=== PATIENT | male | born 1935 | race Caucasian/White ===

== ENCOUNTER 2018-12-18 17:46 | Inpatient (IN) ==
[2018-12-18 18:13] LABS: Basophils % 0.6 %; Eosinophils # 0.1 K/mcL (0.0-0.6); Hematocrit 47.4 % (37.5-50.1); Hemoglobin 15.6 g/dL (12.9-16.9); Immature Granulocytes % 0.3 % (0-4); Lymphocytes # 1.2 K/mcL (0.6-4.6); Lymphocytes % 17.5 %; Mean Corpuscular HGB Conc 32.9 g/dL (31.6-35.5); Mean Corpuscular Hemoglobin 33.1 pg (28.0-33.3); Mean Corpuscular Volume 100.4 fL (83.0-100.0); Mean Platelet Volume 11.3 fL (9.4-12.4); Monocytes # 0.8 K/mcL (0.0-1.3); Monocytes % 11.5 %; Neutrophils # 4.7 K/mcL (1.6-8.9); Platelet Count 116 K/mcL (140-400); Red Blood Count 4.72 M/mcL (4.19-5.50); Red Cell Distribution Width 13.7 % (11.5-14.5); Segmented Neutrophils % 69.1 %; White Blood Count 6.9 K/mcL (4.3-11.1)
[2018-12-18 18:26] LABS: INR 2.7; Prothrombin Time 30.9 Seconds (9.4-12.1)
[2018-12-18 18:35] LABS: BUN/Creatinine Ratio 18 (6-26); Blood Urea Nitrogen 18 mg/dL (8-23); Calcium 8.6 mg/dL (8.6-10.3); Carbon Dioxide 23 mEq/L (23-29); Chloride 108 mEq/L (98-107); Glucose 98 mg/dL (70-105); Osmolality,Calculated 290 (280-300); Potassium 4.2 mEq/L (3.5-5.1); Sodium 139 mEq/L (136-145); eGFR For African Americans > 60 (> 60); eGFR For Non-African Americans > 60 (> 60)
[2018-12-18 18:36] LABS: Troponin I 0.03 ng/mL (< 0.04)
[2018-12-18] MEDS ORDERED: Furosemide 40 MG/4 ML VIAL IVP ONE (18:42)
--- NOTE | 2018-12-18 19:12 | Emergency Department Note ---
Disposition Clinical Impression: Bradycardia, Dyspnea on exertion CHF (congestive heart failure) Qualifiers: Heart failure type: unspecified Heart failure chronicity: acute Qualified Code(s): I50.9 - Heart failure, unspecified Disposition: Admitted As Inpatient Condition: Good Referrals: Eren Najera MD [Primary Care Provider] - Forms: ED Satisfaction Letter Time of Disposition: 19:33 General Adult HPI - General Chief complaint: ED Shortness of Breath/Dyspnea Stated complaint: dyspnea, bradycardia Time Seen by Provider: 12/18/18 17:50 Source: patient, family Mode of arrival: ambulatory Limitations: no limitations Nursing Notes Reviewed: Yes Vital Signs Reviewed: Yes - History of Present Illness HPI Narrative: 83-year-old female with significant past medical history of atrial fibrillation currently on Coumadin presenting to the emergency department chief complaint of aggressive shortness of breath. Patient states over the past few days he has had worsening shortness of breath on exertion. He has had episodes like this in the past they have spontaneously resolved. This is the worst episode he is ever had. Denies any chest pain, dizziness or syncope. He went to a primary care physician today and was given a prescription for Lasix. At that time he was noticed to be bradycardic and was transferred to the emergency department for further evaluation. Patient states he has been told multiple times that he has a low heart rate and falls with cardiology but has never needed any intervention. Pain Scale: 1 - Related Data Home Medications Medication Instructions Recorded Confirmed Allopurinol [Zyloprim 100 MG] 100 mg PO DAILY 01/13/18 01/13/18 Amlodipine Besylate 2.5 mg PO DAILY 01/13/18 01/13/18 Benazepril HCl 20 mg PO DAILY 01/13/18 01/13/18 Doxazosin [Cardura] 4 mg PO DAILY 01/13/18 01/13/18 HYDROcodone/Acet 5/325 mg [[place] 1 tab PO Q8H PRN 01/13/18 01/13/18 5-325 mg] Multivitamin [One Daily 1 tab PO DAILY 01/13/18 01/13/18 Multivitamin] [place]-3/Dha/Epa/Fish Oil [Fish Oil 1 cap PO DAILY 01/13/18 01/13/18 1,000 mg Softgel] Omeprazole [PriLOSEC] 40 mg PO DAILY 01/13/18 01/13/18 Potassium 99 mg PO DAILY 01/13/18 01/13/18 Simvastatin [Zocor] 40 mg PO HS 01/13/18 01/13/18 Vitamin E Acid Succinate [Vitamin 400 units PO DAILY 01/13/18 01/13/18 E] Warfarin Sodium 5 mg PO QPM 01/13/18 01/13/18 Zinc [Zinc Chelated] 50 mg PO DAILY 01/13/18 01/13/18 Previous Rx's Medication Instructions Recorded Benzonatate [Tessalon] 200 mg PO TID PRN #30 capsule 03/29/18 Doxycycline 100 mg PO BID #14 capsule 03/29/18 GuaiFENesin ER [Mucinex] 1,200 mg PO BID #20 tbbp.12hr 03/29/18 Allergies Allergy/AdvReac Type Severity Reaction Status Date / Time Penicillins Allergy Swelling Verified 03/29/18 10:44 of Lip/Tongue/Throat All systems ED: reviewed and negative except as stated. Constitutional: Denies: fever Eyes: Reports: as per HPI ENT ED: Reports: as per HPI Cardiovascular: Reports: dyspnea on exertion. Denies: chest pain Respiratory: Reports: dyspnea Gastrointestinal: Reports: as per HPI Genitourinary: Reports: as per HPI Musculoskeletal: Reports: as per HPI Integumentary: Reports: as per HPI Neurological: Reports: as per HPI Psychiatric: Reports: as per HPI Endocrine: Reports: as per HPI Hematological/Lymphatic: Reports: as per HPI Allergic/Immunologic: Reports: as per HPI Past Medical History - Past Medical History Attestation: Yes The following information was validated with the patient. Medical history: Reports: hypertension Surgical history: Reports: hip replacement, knee replacement Psychiatric history: Reports: no psych history - Social History Smoking Status: Never smoker Smokeless Tobacco Status: No Alcohol use: Reports: none Drug use: Reports: none Physical Exam - General Limitations: no limitations General appearance: alert, in no apparent distress - Head Head exam: atraumatic, normocephalic, normal inspection - Eye Eye exam: Absent: scleral icterus - ENT ENT exam: mucous membranes moist - Neck Neck exam: Present: full ROM - Chest Chest inspection: Present: symmetric chest wall rise - Respiratory Respiratory exam: Present: other (Coarse breath sounds bilateral bases) - Cardiovascular Cardiovascular exam: Present: normal rhythm, bradycardia, normal heart sounds - Abdominal Exam Abdominal exam: Present: soft, Non-Tender. Absent: distention, guarding, rebound - Extremities Exam Extremities exam: Present: full ROM - Neurological Exam Neurological exam: Present: alert, oriented X3 - Psychiatric Psychiatric exam: Present: normal affect - Skin Skin exam: Present: warm Course Course Narrative: 83-year-old male presenting to the emergency department chief complaint of dyspnea on exertion. In the room he is alert and oriented 3. Bradycardic in the upper 30s and low 40s but hemodynamically stable. Physical exam is significant for decreased breath sounds in the bilateral bases. He does have trace edema in the bilateral lower extremities. Concern for CHF exacerbation at this time. Also concern for possible symptomatic bradycardia. We will obtain basic laboratory analysis and chest x-ray. Disposition will be admission but pending results. Patient agrees with this plan. - Reevaluation(s) Reevaluation #1: Patient's laboratory analysis benign. Chest x-ray shows pleural effusion. At this time we will plan to admit the patient for bradycardia and fluid overload with concern for new onset CHF. Patient remains alert and oriented 3 and hemodynamically stable. Patient agrees with this plan. I spoke with the hospitalist director of alumni relations Dr. Diamond who agrees to accept the patient at this time. Vital Signs Temperature 97.7 F 12/18/18 17:47 Pulse Rate 46 12/18/18 17:47 Respiratory Rate 20 12/18/18 17:47 Blood Pressure 156/77 12/18/18 17:47 O2 Sat by Pulse Oximetry 93 12/18/18 17:47 Temperature 97.7 F 12/18/18 17:53 Pulse Rate 46 12/18/18 17:53 Respiratory Rate 20 12/18/18 17:53 Blood Pressure 156/77 12/18/18 17:53 O2 Sat by Pulse Oximetry 98 12/18/18 18:08 Oxygen Delivery Oxygen Delivery Room Air Medical Decision Making - Lab Data Result diagrams: 12/18/18 17:56 12/18/18 17:56 Lab Results 12/18/18 12/18/18 12/18/18 Range/Units 17:56 17:56 17:56 WBC 6.9 (4.3-11.1) K/mcL RBC 4.72 (4.19-5.50) M/mcL Hgb 15.6 (12.9-16.9) g/dL Hct 47.4 (37.5-50.1) % MCV 100.4 H (83.0-100.0) fL MCH 33.1 (28.0-33.3) pg MCHC 32.9 (31.6-35.5) g/dL RDW 13.7 (11.5-14.5) % Plt Count 116 L (140-400) K/mcL MPV 11.3 (9.4-12.4) fL Immature Gran % 0.3 (0-4) % Seg Neutrophils % 69.1 % Lymphocytes % 17.5 % Monocytes % 11.5 % Eosinophils % 1.0 % Basophils % 0.6 % Neutrophils # 4.7 (1.6-8.9) K/mcL Lymphocytes # 1.2 (0.6-4.6) K/mcL Monocytes # 0.8 (0.0-1.3) K/mcL Eosinophils # 0.1 (0.0-0.6) K/mcL Basophils # 0.0 (0.0-0.2) K/mcL PT (9.4-12.1) Seconds INR Sodium 139 (136-145) mEq/L Potassium 4.2 (3.5-5.1) mEq/L Chloride 108 H (98-107) mEq/L Carbon Dioxide 23 (23-29) mEq/L BUN 18 (8-23) mg/dL Creatinine 1.01 (0.70-1.30) mg/dL Est GFR ( Amer) > 60 (> 60) Est GFR (Non-Af Amer) > 60 (> 60) BUN/Creatinine Ratio 18 (6-26) Glucose 98 (70-105) mg/dL Calculated Osmolality 290 (280-300) Calcium 8.6 (8.6-10.3) mg/dL Troponin I 0.03 (< 0.04) ng/mL B-Natriuretic Peptide 608 H (Less than 100) pg/mL 12/18/18 Range/Units 17:56 WBC (4.3-11.1) K/mcL RBC (4.19-5.50) M/mcL Hgb (12.9-16.9) g/dL Hct (37.5-50.1) % MCV (83.0-100.0) fL MCH (28.0-33.3) pg MCHC (31.6-35.5) g/dL RDW (11.5-14.5) % Plt Count (140-400) K/mcL MPV (9.4-12.4) fL Immature Gran % (0-4) % Seg Neutrophils % % Lymphocytes % % Monocytes % % Eosinophils % % Basophils % % Neutrophils # (1.6-8.9) K/mcL Lymphocytes # (0.6-4.6) K/mcL Monocytes # (0.0-1.3) K/mcL Eosinophils # (0.0-0.6) K/mcL Basophils # (0.0-0.2) K/mcL PT 30.9 H (9.4-12.1) Seconds INR 2.7 Sodium (136-145) mEq/L Potassium (3.5-5.1) mEq/L Chloride (98-107) mEq/L Carbon Dioxide (23-29) mEq/L BUN (8-23) mg/dL Creatinine (0.70-1.30) mg/dL Est GFR ( Amer) (> 60) Est GFR (Non-Af Amer) (> 60) BUN/Creatinine Ratio (6-26) Glucose (70-105) mg/dL Calculated Osmolality (280-300) Calcium (8.6-10.3) mg/dL Troponin I (< 0.04) ng/mL B-Natriuretic Peptide (Less than 100) pg/mL - EKG Data EKG #1 EKG attestation: Yes I reviewed and interpreted this EKG. EKG results narrative: atrial fibrillation. Right bundle branch block. 57 bpm. QRS 163, QTC 479. No sign of acute ST segment elevation or ischemia.
--- NOTE | 2018-12-18 19:26 | Emergency Department Note ---
Disposition Clinical Impression: Bradycardia, Dyspnea on exertion CHF (congestive heart failure) Qualifiers: Heart failure type: unspecified Heart failure chronicity: acute Qualified Code(s): I50.9 - Heart failure, unspecified Disposition: Admitted As Inpatient Condition: Fair Time of Disposition: 19:20 General Adult HPI - General Chief complaint: ED Shortness of Breath/Dyspnea Stated complaint: dyspnea, bradycardia Time Seen by Provider: 12/18/18 17:50 Source: patient, family Mode of arrival: ambulatory Limitations: no limitations Nursing Notes Reviewed: Yes Vital Signs Reviewed: Yes - History of Present Illness Pain Scale: 1 - Related Data Home Medications Medication Instructions Recorded Confirmed Allopurinol [Zyloprim 100 MG] 100 mg PO DAILY 01/13/18 01/13/18 Amlodipine Besylate 2.5 mg PO DAILY 01/13/18 01/13/18 Benazepril HCl 20 mg PO DAILY 01/13/18 01/13/18 Doxazosin [Cardura] 4 mg PO DAILY 01/13/18 01/13/18 HYDROcodone/Acet 5/325 mg [[place] 1 tab PO Q8H PRN 01/13/18 01/13/18 5-325 mg] Multivitamin [One Daily 1 tab PO DAILY 01/13/18 01/13/18 Multivitamin] [place]-3/Dha/Epa/Fish Oil [Fish Oil 1 cap PO DAILY 01/13/18 01/13/18 1,000 mg Softgel] Omeprazole [PriLOSEC] 40 mg PO DAILY 01/13/18 01/13/18 Potassium 99 mg PO DAILY 01/13/18 01/13/18 Simvastatin [Zocor] 40 mg PO HS 01/13/18 01/13/18 Vitamin E Acid Succinate [Vitamin 400 units PO DAILY 01/13/18 01/13/18 E] Warfarin Sodium 5 mg PO QPM 01/13/18 01/13/18 Zinc [Zinc Chelated] 50 mg PO DAILY 01/13/18 01/13/18 Previous Rx's Medication Instructions Recorded Benzonatate [Tessalon] 200 mg PO TID PRN #30 capsule 03/29/18 Doxycycline 100 mg PO BID #14 capsule 03/29/18 GuaiFENesin ER [Mucinex] 1,200 mg PO BID #20 tbbp.12hr 03/29/18 Allergies Allergy/AdvReac Type Severity Reaction Status Date / Time Penicillins Allergy Swelling Verified 03/29/18 10:44 of Lip/Tongue/Throat Constitutional: Denies: fever Eyes: Reports: as per HPI ENT ED: Reports: as per HPI Cardiovascular: Reports: dyspnea on exertion. Denies: chest pain Respiratory: Reports: dyspnea Gastrointestinal: Reports: as per HPI Genitourinary: Reports: as per HPI Musculoskeletal: Reports: as per HPI Integumentary: Reports: as per HPI Neurological: Reports: as per HPI Psychiatric: Reports: as per HPI Endocrine: Reports: as per HPI Hematological/Lymphatic: Reports: as per HPI Allergic/Immunologic: Reports: as per HPI Past Medical History - Past Medical History Medical history: Reports: hypertension Surgical history: Reports: hip replacement, knee replacement Psychiatric history: Reports: no psych history - Social History Smoking Status: Never smoker Smokeless Tobacco Status: No Alcohol use: Reports: none Drug use: Reports: none Physical Exam - General Limitations: no limitations General appearance: alert, in no apparent distress Course Vital Signs Temperature 97.7 F 12/18/18 17:47 Pulse Rate 46 12/18/18 17:47 Respiratory Rate 20 12/18/18 17:47 Blood Pressure 156/77 12/18/18 17:47 O2 Sat by Pulse Oximetry 93 12/18/18 17:47 Temperature 97.7 F 12/18/18 17:53 Pulse Rate 46 12/18/18 17:53 Respiratory Rate 20 12/18/18 17:53 Blood Pressure 156/77 12/18/18 17:53 O2 Sat by Pulse Oximetry 98 12/18/18 18:08 Oxygen Delivery Oxygen Delivery Room Air Medical Decision Making - Lab Data Result diagrams: 12/18/18 17:56 12/18/18 17:56 Lab Results 12/18/18 12/18/18 12/18/18 Range/Units 17:56 17:56 17:56 WBC 6.9 (4.3-11.1) K/mcL RBC 4.72 (4.19-5.50) M/mcL Hgb 15.6 (12.9-16.9) g/dL Hct 47.4 (37.5-50.1) % MCV 100.4 H (83.0-100.0) fL MCH 33.1 (28.0-33.3) pg MCHC 32.9 (31.6-35.5) g/dL RDW 13.7 (11.5-14.5) % Plt Count 116 L (140-400) K/mcL MPV 11.3 (9.4-12.4) fL Immature Gran % 0.3 (0-4) % Seg Neutrophils % 69.1 % Lymphocytes % 17.5 % Monocytes % 11.5 % Eosinophils % 1.0 % Basophils % 0.6 % Neutrophils # 4.7 (1.6-8.9) K/mcL Lymphocytes # 1.2 (0.6-4.6) K/mcL Monocytes # 0.8 (0.0-1.3) K/mcL Eosinophils # 0.1 (0.0-0.6) K/mcL Basophils # 0.0 (0.0-0.2) K/mcL PT (9.4-12.1) Seconds INR Sodium 139 (136-145) mEq/L Potassium 4.2 (3.5-5.1) mEq/L Chloride 108 H (98-107) mEq/L Carbon Dioxide 23 (23-29) mEq/L BUN 18 (8-23) mg/dL Creatinine 1.01 (0.70-1.30) mg/dL Est GFR ( Amer) > 60 (> 60) Est GFR (Non-Af Amer) > 60 (> 60) BUN/Creatinine Ratio 18 (6-26) Glucose 98 (70-105) mg/dL Calculated Osmolality 290 (280-300) Calcium 8.6 (8.6-10.3) mg/dL Troponin I 0.03 (< 0.04) ng/mL B-Natriuretic Peptide 608 H (Less than 100) pg/mL 12/18/18 Range/Units 17:56 WBC (4.3-11.1) K/mcL RBC (4.19-5.50) M/mcL Hgb (12.9-16.9) g/dL Hct (37.5-50.1) % MCV (83.0-100.0) fL MCH (28.0-33.3) pg MCHC (31.6-35.5) g/dL RDW (11.5-14.5) % Plt Count (140-400) K/mcL MPV (9.4-12.4) fL Immature Gran % (0-4) % Seg Neutrophils % % Lymphocytes % % Monocytes % % Eosinophils % % Basophils % % Neutrophils # (1.6-8.9) K/mcL Lymphocytes # (0.6-4.6) K/mcL Monocytes # (0.0-1.3) K/mcL Eosinophils # (0.0-0.6) K/mcL Basophils # (0.0-0.2) K/mcL PT 30.9 H (9.4-12.1) Seconds INR 2.7 Sodium (136-145) mEq/L Potassium (3.5-5.1) mEq/L Chloride (98-107) mEq/L Carbon Dioxide (23-29) mEq/L BUN (8-23) mg/dL Creatinine (0.70-1.30) mg/dL Est GFR ( Amer) (> 60) Est GFR (Non-Af Amer) (> 60) BUN/Creatinine Ratio (6-26) Glucose (70-105) mg/dL Calculated Osmolality (280-300) Calcium (8.6-10.3) mg/dL Troponin I (< 0.04) ng/mL B-Natriuretic Peptide (Less than 100) pg/mL Critical Care Time Critical Care Time: Yes Total Critical Care Time: 45 Attestation: Critical care performed: Time is exclusive of separately billable procedures. Time includes: direct patient care, patient reassessment, coordination of patient care, interpretation of data (laboratory data, radiology data, and respiratory data), review of patient's medical records, medical consultation and documentation of patient care. Procedures included in critical care time: Procedures excluded from critical care time: Attestation Statement - Attestation Attestation: I examined this patient and my medical decision-making was reviewed with the Brock adame Physician. I agree with the documented findings, disposition and treatment plan as described except to the extent set forth below. Patient to the ED with a chief complaint of dyspnea on exertion. Patient has been doing physical therapy. They sent him to his PCP. They sent him here. Denies any dizziness or syncope. No chest pain. He was recently started on Lasix. On exam he is in no acute distress. His heart rates fluctuating between 30 and 50. He is asymptomatic with this. Abdomen is soft. Lungs diminished. He does have 2+ pedal edema bilaterally. Plan. Cardiac workup. Nurses placed him on pacer pads, but the patient is asymptomatic. Patient is not hypo tensive. Getting IV Lasix. Chest x-ray shows a possible basilar opacity. Patient is not coughing. He is afebrile. No white count. I do not believe he has pneumonia. He is given IV Lasix for diuresis. Calling for admission. Admitted to medicine.
--- NOTE | 2018-12-18 19:40 | Internal Med History&Physical ---
<Kim Mishra - Last Filed: 12/18/18 21:36> Date of Encounter: 12/18/18 Time of Encounter: 19:40 Internal Medicine - H&P: HPI Chief complaint: Dyspnea Admitted From: Emergency Dept Plans for Post Hospital Care: Home History of present illness: Mr. Fox is a 83 year old male with past medical history of atrial fibrillation on anticoagulation, hypertension, hyperlipidemia, Gerd, CHRISTIANO who presented to [facility] complaining of shortness of breath. Patient reported that he was at his chiropractor's office and it was noted that he was bradycardiac and short of breath so he was recommended to go to ED. The patient reported that for about a month now he has had dyspnea on exertion that has been slowly worsening with today having the worst dyspnea. It is improved with rest. He states he has been bradycardiac with heart rate in the 40s for a very long time but he is asymptomatic and has never had a syncopal episode, chest pain, palpitations, weakness. He has only been lightheaded once with it in the past. He has noted some nausea recently. He does not take any heart rate limiting medications. He has occasional left lower extremity edema from an Achilles tendon surgery. He denied orthopnea, chest pain, palpitations, syncope, PND, lower extremity edema, wheezing, cough, sputum production, abdominal pain, diaphoresis, difficulty urinating. 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 Denies drug and tobacco use. Family history of father having [place]. After thorough discussion of code status the patient reported he would not want intubated or chest compressions. He requested DNR CCA DNI. Initial vitals in ED were 97.7F, HR 30-40s, RR 20, BP 156/77, SpO2 93% on room air. Platelets 116, INR 2.7, BNP 608, troponin 0.03. BMP unremarkable. -Chest x-ray showing small right effusion with right basilar airspace disease either atelectasis or pneumonia. -EKG showing atrial fibrillation, HR 57, no ST or T wave changes indicating ischemia. -In the ED the patient was given Lasix 40 mg IV. Past Med Surg Social Fam HX - Past Medical History Attestation: Yes The following information was validated with the patient. Source: patient Medical history: atrial fibrillation, GERD, hypertension Additional medical history: bradycardia Psychiatric history: no psych history - Past Surgical History Surgical History: hip replacement, knee replacement Additional surgical history: achillies tendon repair, - Social History Smoking Status: Never smoker Smokeless Tobacco Status: No Alcohol use: recent (2 cocktails a day with 1.5 shots each) Drug use: none - Family History Father Hx Family Cardiac Disorders: Yes ([place]) Mother Hx Family Cancer: Yes (breast) Internal Medicine - H&P: Meds Benazepril HCl 20 mg PO DAILY 01/13/18 [History] Doxazosin [Cardura] 4 mg PO DAILY 01/13/18 [History] HYDROcodone/Acet 5/325 mg [[place] 5-325 mg] 1 tab PO Q8H PRN 01/13/18 [History] Multivitamin [One Daily Multivitamin] 1 tab PO DAILY 01/13/18 [History] [place]-3/Dha/Epa/Fish Oil [Fish Oil 1,000 mg Softgel] 1 cap PO DAILY 01/13/18 [History] Potassium 99 mg PO DAILY 01/13/18 [History] Simvastatin [Zocor] 40 mg PO HS 01/13/18 [History] Vitamin E Acid Succinate [Vitamin E] 400 units PO DAILY 01/13/18 [History] Warfarin Sodium 5 mg PO QPM 01/13/18 [History] Zinc [Zinc Chelated] 50 mg PO DAILY 01/13/18 [History] Allopurinol [Zyloprim 300 MG] 300 mg PO DAILY 12/18/18 [History] Colchicine [Colcrys] 0.6 mg PO DAILY 12/18/18 [History] Furosemide [Lasix] 20 mg PO DAILY 12/18/18 [History] Omeprazole 20 mg PO DAILY 12/18/18 [History] Allergy/AdvReac Type Severity Reaction Status Date / Time Penicillins Allergy Swelling Verified 03/29/18 10:44 of Lip/Tongue/Throat All Systems PM: A 10-system review of systems was performed and is negative for pertinent findings except as documented above in the HPI. - Constitutional Constitutional: no chills, no fatigue, no fever(s), no falls, no malaise, no weakness - EENT Eyes: no blurry vision, no change in vision - Cardiovascular Cardiovascular ROS IM: edema, no chest pain, no diaphoresis, no dyspnea on exertion, no lightheadedness, no orthopnea, no palpitations, no paroxysmal nocturnal dyspnea, no syncope - Respiratory Respiratory: dyspnea on exertion, no cough, no wheezing, no excessive phlegm production - Gastrointestinal Gastrointestinal: no abdominal pain, no diarrhea, no nausea, no vomiting - Genitourinary Genitourinary ROS male: no difficulty urinating, no dysuria - Musculoskeletal Musculoskeletal ROS IM: no muscle cramps, no muscle weakness - Integumentary Integumentary IM: no rash, no skin ulcer - Neurological Neurological ROS: no dizziness, no frequent falls, no headache(s) - Psychiatric Psychiatric: no confusion - Endocrine Endocrine IM: no fatigue - Constitutional Vitals: Temp Pulse Resp BP Pulse Ox 97.7 F 46 20 156/77 98 12/18/18 17:53 12/18/18 17:53 12/18/18 17:53 12/18/18 17:53 12/18/18 18:08 Exam: Gen.: Vitals noted. No acute distress. AAOx3, morbidly obese HEENT: oropharynx clear, Normocephalic, atraumatic Cardiac: irregular, 3/6 systolic murmur, +S1/S2 Pulmonary: bilaterally rales, no wheezes, or rhonchi, equal chest expansion Abdomen: soft, nontender, Bowel sounds noted, no guarding MSK: ROM intact, no joint swelling noted Extremities: +1 BLE pitting edema, nontender calf, no cyanosis or clubbing Neuro: A&Ox3, moves all extremities, no focal deficits Psych: Appropriate mood and behavior Internal Med - H&P Results - Labs CBC & Chem 7: 12/18/18 17:56 12/18/18 17:56 Labs: Short CBC 12/18/18 Range/Units 17:56 WBC 6.9 (4.3-11.1) K/mcL Hgb 15.6 (12.9-16.9) g/dL Hct 47.4 (37.5-50.1) % Plt Count 116 L (140-400) K/mcL Neutrophils # 4.7 (1.6-8.9) K/mcL BMP 12/18/18 17:56 Sodium 139 Potassium 4.2 Chloride 108 H Carbon Dioxide 23 BUN 18 Creatinine 1.01 Glucose 98 Calcium 8.6 Cardiac Enzymes 12/18/18 Range/Units 17:56 Troponin I 0.03 (< 0.04) ng/mL - Impressions ITS Impressions Chest X-Ray 12/18/18 18:57 IMPRESSION: Small right effusion with right basilar airspace disease, atelectasis or pneumonia. D/ / Thalia Yee Cha, MD / Thalia Yee Cha, MD Interpreting Provider: Thalia Yee Cha, MD - Assessment and Plan (1) CHF (congestive heart failure) Current Visit: Yes Status: Acute Assessment and plan: Presumptive new CHF. Patient has reported dyspnea on exertion has been progressively worsening over the past month and was at its worse today. In the ED the patient was given Lasix 40 mg IV. -In ED HR 30-40s. Heart rate now 52 -BNP 608 -troponin 0.03 -Chest x-ray showing small right effusion with right basilar airspace disease either atelectasis or pneumonia. -EKG showing atrial fibrillation, HR 57, no ST or T wave changes indicating ischemia. -Patient denies chest pain, palpitations, diaphoresis. -On examination patient has bibasilar rales and bilateral 1+ pitting edema plan -echocardiogram ordered -continue Lasix 20 mg IV daily -cardiology consulted due to bradycardia with presumes new CHF as he is now hav ing dyspnea on exertion -trend troponin -continue home lisinopril, simvastatin. -No beta shea due to bradycardia -1500cc fluid restrictive diet -strict I&O, daily weight Qualifiers: Heart failure type: unspecified Heart failure chronicity: acute Qualified Code(s): I50.9 - Heart failure, unspecified (2) Bradycardia Current Visit: Yes Status: Acute Assessment and plan: Patient was known chronic bradycardia for which he has previously been asymptomatic but is now having dyspnea on exertion.. In ED HR 30-40s. He follows with the grant officer Dr. Montelongo. He denies chest pain, syncope, weakness, fatigue. He has new dyspnea on exertion for the past month. He is not any heart rate limiting medications. -EKG showing atrial fibrillation, HR 57, no ST or T wave changes indicating ischemia. plan -cardiology consulted to evaluate the bradycardia. Possible pacemaker? -Continue cardiac telemetry (3) Dyspnea on exertion Current Visit: Yes Status: Acute Assessment and plan: Dyspnea on exertion is likely multifactorial secondary to CHF, but also having bradycardia 30-40s. Patient has no previous diagnosis CHF. Improved with rest. Do not suspect COPD as he does not smoke. Do not suspect pneumonia. His atrial fibrillation is rate controlled currently. No PND that he sleeps with BiPAP. No cough, wheezing, fever, chills, chest pain, orthopnea. Patient received 40 mg IV Lasix in ED. -BNP 608 -Chest x-ray showing small right effusion with right basilar airspace disease either atelectasis or pneumonia. -EKG showing atrial fibrillation, HR 57, no ST or T wave changes indicating ischemia. -All my examination he has bilateral bibasilar rales. Bilateral 1+ pitting edema. plan -echocardiogram pending -continue BiPAP at night for CHRISTIANO (4) Thrombocytopenia Current Visit: Yes Status: Acute Assessment and plan: Thrombocytopenia with platelets of 116. Baseline 190s. -Suspect possible etiology may be liver cirrhosis or LEE as patient has history of daily alcohol use for over 20 years. -PT 30.9 -INR 2.7 in the setting of taking warfarin -no obvious active bleeding -will order hepatic panel to evaluate. -Consider liver ultrasound out patient (5) Afib Current Visit: No Status: Chronic Assessment and plan: History of atrial fibrillation on anticoagulation with warfarin. Patient is not rate controlled as he is chronically bradycardiac. Continue warfarin. Qualifiers: Atrial fibrillation type: unspecified Qualified Code(s): I48.91 - Unspecified atrial fibrillation (6) Hypertension Current Visit: Yes Status: Acute Assessment and plan: History of hypertension taking benazepril. BP controlled. 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 He denies ever having withdrawal symptoms or seizures. -Will order CIWA protocol as a precautionary with Ativan PRN. (8) CHRISTIANO (obstructive sleep apnea) Current Visit: Yes Status: Acute Assessment and plan: Patient has CHRISTIANO for which uses BiPAP at that time. Continue BiPAP (9) Morbid obesity with BMI of 40.0-44.9, adult Current Visit: Yes Status: Acute Assessment and plan: Lifestyle changes (10) DVT prophylaxis Current Visit: Yes Status: Acute Assessment and plan: Continue home warfarin - Time Spent With Patient Total time spent is greater than 50% in coordination of care (as documented) at patient's floor/unit and/or counseling patient: <Adarsh Diamond - Last Filed: 12/19/18 04:35> Date of Encounter: 12/18/18 Internal Medicine - H&P: HPI History of present illness: Mr. Fox is a 83 year old male All Systems PM: A 10-system review of systems was performed and is negative for pertinent findings except as documented above in the HPI. - Constitutional Vitals: Temp Pulse Resp BP Pulse Ox 98.1 F 77 16 187/84 99 12/19/18 04:15 12/19/18 04:15 12/19/18 04:15 12/19/18 04:15 12/19/18 04:15 Internal Med - H&P Results - Labs CBC & Chem 7: 12/18/18 17:56 12/19/18 01:14 Labs: Short CBC 12/18/18 Range/Units 17:56 WBC 6.9 (4.3-11.1) K/mcL Hgb 15.6 (12.9-16.9) g/dL Hct 47.4 (37.5-50.1) % Plt Count 116 L (140-400) K/mcL Neutrophils # 4.7 (1.6-8.9) K/mcL BMP 12/18/18 12/19/18 17:56 01:14 Sodium 139 142 Potassium 4.2 3.7 Chloride 108 H 104 Carbon Dioxide 23 27 BUN 18 20 Creatinine 1.01 1.03 Glucose 98 112 H Calcium 8.6 9.0 Cardiac Enzymes 12/18/18 12/18/18 Range/Units 17:56 23:42 Troponin I 0.03 0.04 H* (< 0.04) ng/mL Liver Function 12/19/18 Range/Units 01:14 Total Bilirubin 1.5 H (0.3-1.0) mg/dL Direct Bilirubin 0.6 H (0.0-0.2) mg/dL AST 18 (13-39) Units/L ALT 13 (7-52) Units/L Alkaline Phosphatase 91 (34-104) Units/L Albumin 3.8 (3.5-5.7) g/dL - Impressions ITS Impressions Chest X-Ray 12/18/18 18:57 IMPRESSION: Small right effusion with right basilar airspace disease, atelectasis or pneumonia. D/ / Thalia Yee Cha, MD / Thalia Yee Cha, MD Interpreting Provider: Thalia Yee Cha, MD - Assessment and Plan (1) CHF (congestive heart failure) Current Visit: Yes Status: Acute Qualifiers: Heart failure type: unspecified Heart failure chronicity: acute Qualified Code(s): I50.9 - Heart failure, unspecified (2) Bradycardia Current Visit: Yes Status: Acute (3) Dyspnea on exertion Current Visit: Yes Status: Acute (4) Thrombocytopenia Current Visit: Yes Status: Acute (5) Afib Current Visit: No Status: Chronic Qualifiers: Atrial fibrillation type: unspecified Qualified Code(s): I48.91 - Unspecified atrial fibrillation (6) Hypertension Current Visit: Yes Status: Acute Qualifiers: Hypertension type: essential hypertension Qualified Code(s): I10 - Essential (primary) hypertension (7) Daily consumption of alcohol Current Visit: Yes Status: Acute (8) CHRISTIANO (obstructive sleep apnea) Current Visit: Yes Status: Acute (9) Morbid obesity with BMI of 40.0-44.9, adult Current Visit: Yes Status: Acute (10) DVT prophylaxis Current Visit: Yes Status: Acute - Time Spent With Patient Total time spent is greater than 50% in coordination of care (as documented) at patient's floor/unit and/or counseling patient: - Attending Attestation I saw and evaluated the patient. I reviewed the residents note, performed my own physical examination and agree with findings and plan as documented in the residents note. Patient seen and examined on 12/18/18 at 2330. Patient presented to the hospital with shortness of breath. Found to have likely new onset heart failure. Patient has a history of atrial fibrillation, on coumadin. Patient's heart rate also noted to be low as well. We will continue to monitor, echocardiogram, cardiology consult in the morning. Patient also had lasix in the ER, with good urine output thus far. Continue to monitor urine output.
[2018-12-18] MEDS ORDERED: Naloxone 0.4 MG/ML INJ IVP PRN (20:30)
[2018-12-18] MEDS ORDERED: *HR* LORazepam 2 MG/ML VIAL IVP PRN ×2 (20:32)
[2018-12-18] MEDS ORDERED: *HR* Warfarin 5 MG TABLET PO ONE (23:00)
[2018-12-19 02:17] LABS: INR 2.5; Prothrombin Time 28.2 Seconds (9.4-12.1)
[2018-12-19 02:30] LABS: Albumin 3.8 g/dL (3.5-5.7); Albumin/Globulin Ratio 1.4 (1.1-2.2); Bilirubin,Direct 0.6 mg/dL (0.0-0.2); Bilirubin,Indirect 0.9 mg/dL (0.0-1.2); Bilirubin,Total 1.5 mg/dL (0.3-1.0); Globulin 2.8 g/dL (2.4-3.5); Total Protein 6.6 g/dL (6.4-8.9)
[2018-12-19 02:34] LABS: BUN/Creatinine Ratio 19 (6-26); Blood Urea Nitrogen 20 mg/dL (8-23); Carbon Dioxide 27 mEq/L (23-29); Chloride 104 mEq/L (98-107); Glucose 112 mg/dL (70-105); Magnesium 1.8 mg/dL (1.6-2.6); Osmolality,Calculated 297 (280-300); Potassium 3.7 mEq/L (3.5-5.1); Sodium 142 mEq/L (136-145); eGFR For African Americans > 60 (> 60); eGFR For Non-African Americans > 60 (> 60)
[2018-12-19] MEDS ORDERED: Perflutren Lipid Microsphere 1.3 ML in 0.9 % Sodium Chloride 8.7 ML IVP ONE (08:36)
--- NOTE | 2018-12-19 09:44 | Internal Med Progress Note ---
<Rashard Samaniego - Last Filed: 12/19/18 11:36> Hospitalist Progress Note - Encounter Date of Encounter: 12/19/18 Time of Encounter: 09:15 - Exam Vitals: Temp Pulse Resp BP Pulse Ox 97.8 F 48 16 195/92 99 12/19/18 07:58 12/19/18 07:58 12/19/18 07:58 12/19/18 07:58 12/19/18 04:15 - Assessment and Plan (1) CHF (congestive heart failure) Current Visit: Yes Status: Acute (2) Bradycardia Current Visit: Yes Status: Acute (3) Dyspnea on exertion Current Visit: Yes Status: Acute (4) Thrombocytopenia Current Visit: Yes Status: Acute (5) Afib Current Visit: No Status: Chronic (6) Hypertension Current Visit: Yes Status: Acute (7) Daily consumption of alcohol Current Visit: Yes Status: Acute (8) CHRISTIANO (obstructive sleep apnea) Current Visit: Yes Status: Acute (9) Morbid obesity with BMI of 40.0-44.9, adult Current Visit: Yes Status: Acute (10) DVT prophylaxis Current Visit: Yes Status: Acute - Time Spent with Patient Total time spent is greater than 50% in coordination of care (as documented) at patient's floor/unit and/or counseling patient: Internal Medicine: Result - Labs CBC & Chem 7: 12/18/18 17:56 12/19/18 01:14 Labs: Short CBC 12/18/18 Range/Units 17:56 WBC 6.9 (4.3-11.1) K/mcL Hgb 15.6 (12.9-16.9) g/dL Hct 47.4 (37.5-50.1) % Plt Count 116 L (140-400) K/mcL Neutrophils # 4.7 (1.6-8.9) K/mcL BMP 12/18/18 12/19/18 17:56 01:14 Sodium 139 142 Potassium 4.2 3.7 Chloride 108 H 104 Carbon Dioxide 23 27 BUN 18 20 Creatinine 1.01 1.03 Glucose 98 112 H Calcium 8.6 9.0 Cardiac Enzymes 12/18/18 12/18/18 12/19/18 Range/Units 17:56 23:42 06:03 Troponin I 0.03 0.04 H* 0.04 H* (< 0.04) ng/mL Liver Function 12/19/18 Range/Units 01:14 Total Bilirubin 1.5 H (0.3-1.0) mg/dL Direct Bilirubin 0.6 H (0.0-0.2) mg/dL AST 18 (13-39) Units/L ALT 13 (7-52) Units/L Alkaline Phosphatase 91 (34-104) Units/L Albumin 3.8 (3.5-5.7) g/dL - ABG Interpretation ABG results: PT/INR, D-dimer PT 28.2 Seconds (9.4-12.1) H 12/19/18 01:14 - Impressions Impressions Chest X-Ray 12/18/18 18:57 IMPRESSION: Small right effusion with right basilar airspace disease, atelectasis or pneumonia. D/ / Thalia Yee Cha, MD / Thalia Yee Cha, MD Interpreting Provider: Thalia Yee Cha, MD Consult Discharge Plan - Plan Referrals: Eren Najera MD [Primary Care Provider] - 12/23/18 8:40 am - Attending Attestation I saw evaluated and examined this patient and reviewed objective data including labs and my medical decision-making was reviewed with the Resident Physician, Bunny Leonardo. I agree with the documented findings, disposition and treatment plan as described except to any changes set forth below. We independently had [id number] contact with the patient. I evaluated patient while he was undergoing 2-D echocardiogram. He was lying down in bed and appeared dyspneic. He however reports feeling much better overall. Denies any chest pain or palpitations. He has had good response to L asix so far. However his been hypertensive significantly with blood pressure 195/92 this morning. Continue lisinopril. Not on any beta blockers due to episodes of bradycardia. Will add hydralazine intravenously to control systolic blood pressure greater than 160. 2-D echocardiogram pending. <Bunny Leonardo - Last Filed: 12/19/18 18:40> Hospitalist Progress Note - Encounter Date of Encounter: 12/19/18 Time of Encounter: 10:30 - Subjective Interval History: Pt seen and examined at bedside. Multiple family members also at bedside. Pt reports he feels better than on initial presentation. Denies any chest pain, shortness of breath, nausea, vomiting, fever, or chills. States he has been urinating frequently with the Lasix, but has experienced no hematuria or dysuria. - Exam Vitals: Temp Pulse Resp BP Pulse Ox 97.8 F 48 16 195/92 99 12/19/18 07:58 12/19/18 07:58 12/19/18 07:58 12/19/18 07:58 12/19/18 04:15 Exam: General: obese male in no acute distress, laying reclined in bed Head: NCAT Eyes: PERRL, EOMI, sclera anicteric, conjunctiva pink Neck: supple, trachea midline Lungs: CTA bilaterally. non-labored breathing on room air. No wheezes, rales, or rhonchi appreciated Heart: RRR +S1 +s2 No murmurs, clicks, or rubs GI: abdomen soft, obese, non-tender Extremities: warm, radial pulses palpable and symmetrical. no edema, cyanosis, or calf tenderness Neuro: A&Ox3. No focal deficits. No speech difficulty or abnormality Skin: warm, dry, intact - Assessment and Plan (1) CHF (congestive heart failure) Current Visit: Yes Status: Acute Assessment and Plan: Presented with dyspnea on exertion - In ED HR 30-40s. Heart rate now 52 - BNP 608 - troponin 0.03 - Chest x-ray showing small right effusion with right basilar airspace disease either atelectasis or pneumonia. - EKG showing atrial fibrillation, HR 57, no ST or T wave changes indicating ischemia. - In the ED the patient was given Lasix 40 mg IV. - Echo demonstrated the following: Technically sub-optimal due to poor echocardiographic windows. LVEF 55%. Mildly dilated left ventricle. Despite the use of contrast enhancement, suboptimal LV wall motion evaluation. Overall, LV wall motion and function appear normal. Atypical septal motion consistent with bundle branch block. Indeterminate diastolic function. Right ventricle was not well visualized. Grossly, it is dilated with normal function. Mild aortic regurgitation. Severe pulmonary hypertension. Estimated RVSP is 67 mmHg. -cardiology consulted - Recommend stress test -continue home lisinopril, simvastatin. -No beta shea due to bradycardia -1.5L fluid restrictive diet -strict I&Os (2) Bradycardia Current Visit: Yes Status: Acute Assessment and Plan: In ED HR 30-40s Follows with the Dr. Montelongo as outpatinet. Asymptomatic aside from dyspnea on exertion -EKG showing atrial fibrillation, HR 57, no ST or T wave changes indicating ischemia. plan -cardiology consulted - recommend stress test. after that will evaluate for possible pacemaker -Continue cardiac telemetry (3) Thrombocytopenia Current Visit: Yes Status: Acute Assessment and Plan: Thrombocytopenia with platelets of 116. -Suspect possible etiology may be liver cirrhosis or LEE as patient has history of daily alcohol use for over 20 years. -PT 30.9 -INR 2.7 in the setting of taking warfarin -no obvious active bleeding Continue to monitor (4) Afib Current Visit: Yes Status: Chronic Assessment and Plan: History of atrial fibrillation on anticoagulation with warfarin. Bradycardia as above Continue Coumadin (5) Hypertension Current Visit: Yes Status: Acute Assessment and Plan: BP currently controlled at 116/80 Continue Lisinopril 20mg PRN labetalol (6) Daily consumption of alcohol Current Visit: Yes Status: Acute Assessment and Plan: Patient reports drinking to cocktails a day with approximately 1.5 shots each for over 20 years. He denies ever having withdrawal symptoms or seizures. -CIWA protocol with Ativan PRN. (7) CHRISTIANO (obstructive sleep apnea) Current Visit: No Status: Chronic Assessment and Plan: Continue BiPAP (8) Morbid obesity with BMI of 40.0-44.9, adult Current Visit: Yes Status: Chronic Assessment and Plan: chronic issue DVT Prophylaxis: on coumadin - Time Spent with Patient Total time spent is greater than 50% in coordination of care (as documented) at patient's floor/unit and/or counseling patient: Internal Medicine: Result - Labs CBC & Chem 7: 12/18/18 17:56 12/19/18 01:14 Labs: Short CBC 12/18/18 Range/Units 17:56 WBC 6.9 (4.3-11.1) K/mcL Hgb 15.6 (12.9-16.9) g/dL Hct 47.4 (37.5-50.1) % Plt Count 116 L (140-400) K/mcL Neutrophils # 4.7 (1.6-8.9) K/mcL BMP 12/18/18 12/19/18 17:56 01:14 Sodium 139 142 Potassium 4.2 3.7 Chloride 108 H 104 Carbon Dioxide 23 27 BUN 18 20 Creatinine 1.01 1.03 Glucose 98 112 H Calcium 8.6 9.0 Cardiac Enzymes 12/18/18 12/18/18 12/19/18 Range/Units 17:56 23:42 06:03 Troponin I 0.03 0.04 H* 0.04 H* (< 0.04) ng/mL Liver Function 12/19/18 Range/Units 01:14 Total Bilirubin 1.5 H (0.3-1.0) mg/dL Direct Bilirubin 0.6 H (0.0-0.2) mg/dL AST 18 (13-39) Units/L ALT 13 (7-52) Units/L Alkaline Phosphatase 91 (34-104) Units/L Albumin 3.8 (3.5-5.7) g/dL - ABG Interpretation ABG results: PT/INR, D-dimer PT 28.2 Seconds (9.4-12.1) H 12/19/18 01:14 - Impressions Impressions Chest X-Ray 12/18/18 18:57 IMPRESSION: Small right effusion with right basilar airspace disease, atelectasis or pneumonia. D/ / Thalia Yee Cha, MD / Thalia Yee Cha, MD Interpreting Provider: Thalia Yee Cha, MD <Rashard Samaniego - Last Filed: 12/19/18 11:36> (1) CHF (congestive heart failure) Qualifiers: Heart failure type: unspecified Heart failure chronicity: acute Qualified Code(s): I50.9 - Heart failure, unspecified (5) Afib Qualifiers: Atrial fibrillation type: unspecified Qualified Code(s): I48.91 - Unspecified atrial fibrillation (6) Hypertension Qualifiers: Hypertension type: essential hypertension Qualified Code(s): I10 - Essential (primary) hypertension <Bunny Leonardo - Last Filed: 12/19/18 18:40> (1) CHF (congestive heart failure) Qualifiers: Heart failure type: unspecified Heart failure chronicity: acute Qualified Code(s): I50.9 - Heart failure, unspecified (4) Afib Qualifiers: Atrial fibrillation type: unspecified Qualified Code(s): I48.91 - Unspecified atrial fibrillation (5) Hypertension Qualifiers: Hypertension type: essential hypertension Qualified Code(s): I10 - Essential (primary) hypertension
[2018-12-19] MEDS: Furosemide 20 MG/2 ML VIAL IVP SCH (09:50)
[2018-12-19] MEDS: Lisinopril 20 MG TABLET PO SCH (09:50)
[2018-12-19] MEDS ORDERED: *HR* HYDROcodone/Acet 5/325 mg TABLET PO PRN (10:51)
[2018-12-19] MEDS: Colchicine 0.6 MG TABLET PO SCH (12:05)
--- NOTE | 2018-12-19 13:11 | Cardiology Consult Note ---
Date of Encounter: 12/19/18 Time of Encounter: 10:00 Assessment and Plan (1) Dyspnea Current Visit: Yes Status: Acute Dyspnea may be related to acute diastolic CHF. Continue diuresis. Echocardiogram to evaluate for structural heart disease. Also possibly related to underlying CAD. Will schedule for stress test to evaluate for ischemia. Will continue to monitor on telemetry. Has significant conduction system disease. May need pacemaker. Qualifiers: Dyspnea type: shortness of breath Qualified Code(s): R06.02 - Shortness of breath; R06.00 - Dyspnea, unspecified; R06.01 - Orthopnea (2) Permanent atrial fibrillation Current Visit: Yes Status: Acute Has chronic a fib with controlled VR. Bradycardic on exam and telemetry. Has been bradycardic in past and asymptomatic, but now has lightheadedness, decreased exercise tolerance, dyspnea that may be related to chronotropic incompetence. Will continue to monitor on telemetry. Await results of echo and stress testing. Continue coumadin. (3) CHRISTIANO (obstructive sleep apnea) Current Visit: No Status: Chronic CPAP Discussion w patient/family: The assessment and plan as outlined above was discussed with the patient and/or family members who expressed understanding and agreement. All questions were answered. Thank you for involving us in the care of your patient. Please call with any questions. History of Present Illness Consult date: 12/19/18 Requesting physician: Kim Mishra Consult reason: CHF, bradycardia Chief complaint: dyspnea History of present illness: Mr. Fox is a 83 year old male with chronic a fib, HTN, hyperlipidemia, CHRISTIANO presents to [facility] c/o dyspnea. Pt was at chiropractor's office yesterday and was noted to be dyspneic. Advised to see PCP who also noted dyspnea as well as HR in 40s. Pt referred to ED for further evaluation/tx. For past month, pt has noted progressively worsening SOTO. Has had some weight gain- 4lbs/past few weeks. Also has had worsening LE edema- has chronic LE edema but had worsened recently. Denies palpitations. Notes occasional lightheadedness. No syncope. Has fatigue, decreased exercise tolerance. Denies orthopnea, PND. Wears CPAP at night for CHRISTIANO. EKG on arrival demonstrated a fib with HR 57bpm, LAFB, RBBB. Troponins 0.04, 0.04. Pt has known history of a fib. Has been noted to have HR in 40s in past and has been asymptomatic. On chronic AC, not on any rate controlling meds. No recent cardiac testing. Past Med Surg Social Fam HX - Past Medical History Medical history: atrial fibrillation, cancer (colon), GERD, hypertension, other (CHRISTIANO) Psychiatric history: no psych history - Past Surgical History Surgical History: hip replacement, knee replacement Additional surgical history: achillies tendon repair, - Social History Smoking Status: Never smoker Smokeless Tobacco Status: No Alcohol use: recent (2 cocktails a day with 1.5 shots each) Drug use: none - Family History Father Living Status: Age at : 71 Hx Family Cardiac Disorders: Yes ([place]) Mother Hx Family Cancer: Yes (breast) Medications and Allergies Benazepril HCl 20 mg PO DAILY 01/13/18 [History] Doxazosin [Cardura] 4 mg PO DAILY 01/13/18 [History] HYDROcodone/Acet 5/325 mg [[place] 5-325 mg] 1 tab PO Q8H PRN 01/13/18 [History] Multivitamin [One Daily Multivitamin] 1 tab PO DAILY 01/13/18 [History] [place]-3/Dha/Epa/Fish Oil [Fish Oil 1,000 mg Softgel] 1 cap PO DAILY 01/13/18 [History] Potassium 99 mg PO DAILY 01/13/18 [History] Simvastatin [Zocor] 40 mg PO HS 01/13/18 [History] Vitamin E Acid Succinate [Vitamin E] 400 units PO DAILY 01/13/18 [History] Warfarin Sodium 5 mg PO QPM 01/13/18 [History] Zinc [Zinc Chelated] 50 mg PO DAILY 01/13/18 [History] Allopurinol [Zyloprim 300 MG] 300 mg PO DAILY 12/18/18 [History] Colchicine [Colcrys] 0.6 mg PO DAILY 12/18/18 [History] Furosemide [Lasix] 20 mg PO DAILY 12/18/18 [History] Omeprazole 20 mg PO DAILY 12/18/18 [History] Allergy/AdvReac Type Severity Reaction Status Date / Time Penicillins Allergy Swelling Verified 03/29/18 10:44 of Lip/Tongue/Throat All Systems Review: The remainder of the systems were reviewed and are negative - Cardiovascular Cardiovascular: as per HPI Physical Examination Vital Signs, Last 4 Hours Temp Pulse Resp BP Pulse Ox 12/19/18 12:41 97.6 F 48 16 206/89 94 General: Conversant, No Apparent Distress HEENT: Atraumatic, Normocephaly, Mucus Membranes Moist Neck: No JVD, Normal carotid pulses Cardiac: Normal S1 and S2, No Murmur, Other (irregularly irregular, bradycardic) Lungs: Normal Breath Sounds, No Wheeze, Rales, Rhonchi Neuro: Alert and responsive, No focal deficits noted Abdomen: Soft, Non-Tender Extremities: No Clubbing, No Cyanosis, Other (chronic venous stasis changes of LE b/l with 1+ pitting edema to midcalf) Results 12/18/18 17:56 12/19/18 01:14 Lab Results 12/18/18 12/18/18 12/18/18 17:56 17:56 17:56 WBC 6.9 Hgb 15.6 Hct 47.4 Plt Count 116 L INR Sodium 139 Potassium 4.2 Chloride 108 H Carbon Dioxide 23 BUN 18 Creatinine 1.01 Glucose 98 Calcium 8.6 Magnesium Total Bilirubin AST ALT Alkaline Phosphatase Troponin I 0.03 B-Natriuretic Peptide 608 H 12/18/18 12/18/18 12/19/18 17:56 23:42 01:14 WBC Hgb Hct Plt Count INR 2.7 Sodium 142 Potassium 3.7 Chloride 104 Carbon Dioxide 27 BUN 20 Creatinine 1.03 Glucose 112 H Calcium 9.0 Magnesium 1.8 Total Bilirubin AST ALT Alkaline Phosphatase Troponin I 0.04 H* B-Natriuretic Peptide 12/19/18 12/19/18 12/19/18 01:14 01:14 06:03 WBC Hgb Hct Plt Count INR 2.5 Sodium Potassium Chloride Carbon Dioxide BUN Creatinine Glucose Calcium Magnesium Total Bilirubin 1.5 H AST 18 ALT 13 Alkaline Phosphatase 91 Troponin I 0.04 H* B-Natriuretic Peptide - EKG Interpretation EKG results cardiology: personally reviewed (EKG- a fib with LAFB, RBBB HR 57bpm) Consult Discharge Plan - Plan Referrals: Eren Najera MD [Primary Care Provider] - 12/23/18 8:40 am
[2018-12-19] MEDS: Isosorbide MONOnitrate (24 HR) 30 MG TAB.ER.24H PO SCH (14:48)
--- NOTE | 2018-12-19 15:14 | Electrocardiograph Report ---
[place] [id number] Test Date: 2018-12-18 Pat Name: Dagoberto Fox Department: [id number] Room: 3B44 Gender: Ocean [employer] Coordinator: : 1935 Requested By: Maria Isabel Dalton Order Number: [id number] Reading MD: Erin Barrientos Measurements Intervals [place] Rate: 57 P: [place]: QRS: -65 QRSD: 163 T: 103 QT: 491 QTc: 479 Interpretive Statements Atrial fibrillation Right bundle branch block and LAFB Electronically Signed On 12-19-2018 15:12:10 EDT by Erin Barrientos
[2018-12-19] MEDS ORDERED: *HR* Labetalol 20 MG/4 ML SYRINGE IVP PRN (15:32)
[2018-12-19] MEDS ORDERED: Warfarin perPT PO PRN (18:00)
[2018-12-19] MEDS ORDERED: *HR* Warfarin 5 MG TABLET PO SCH (18:00)
[2018-12-19] MEDS ORDERED: *HR* Warfarin 5 MG TABLET PO ONE (18:00)
[2018-12-19] MEDS ORDERED: Acetaminophen 325 MG TABLET PO PRN (18:41)
[2018-12-19] MEDS: amLODIPine 5 MG TABLET PO SCH (20:58)
[2018-12-20 00:51] LABS: White Blood Count 8.3 K/mcL (4.3-11.1)
[2018-12-20 00:52] LABS: Basophils % 0.5 %; Eosinophils # 0.1 K/mcL (0.0-0.6); Eosinophils % 1.2 %; Hematocrit 45.7 % (37.5-50.1); Hemoglobin 14.8 g/dL (12.9-16.9); Immature Granulocytes % 0.4 % (0-4); Lymphocytes # 1.3 K/mcL (0.6-4.6); Lymphocytes % 15.2 %; Mean Corpuscular HGB Conc 32.4 g/dL (31.6-35.5); Mean Corpuscular Hemoglobin 32.9 pg (28.0-33.3); Mean Corpuscular Volume 101.6 fL (83.0-100.0); Mean Platelet Volume 11.8 fL (9.4-12.4); Monocytes % 12.6 %; Neutrophils # 5.8 K/mcL (1.6-8.9); Platelet Count 129 K/mcL (140-400); Red Cell Distribution Width 13.7 % (11.5-14.5); Segmented Neutrophils % 70.1 %
[2018-12-20 00:58] LABS: INR 2.3; Prothrombin Time 25.7 Seconds (9.4-12.1)
[2018-12-20 01:13] LABS: Alanine Aminotransferase 12 Units/L (7-52); Albumin 3.7 g/dL (3.5-5.7); Albumin/Globulin Ratio 1.4 (1.1-2.2); Alkaline Phosphatase 93 Units/L (34-104); Aspartate Amino Transferase 19 Units/L (13-39); BUN/Creatinine Ratio 23 (6-26); Bilirubin,Total 1.5 mg/dL (0.3-1.0); Blood Urea Nitrogen 24 mg/dL (8-23); Calcium 8.8 mg/dL (8.6-10.3); Carbon Dioxide 26 mEq/L (23-29); Chloride 105 mEq/L (98-107); Globulin 2.6 g/dL (2.4-3.5); Glucose 108 mg/dL (70-105); Osmolality,Calculated 299 (280-300); Potassium 3.6 mEq/L (3.5-5.1); Sodium 142 mEq/L (136-145); Total Protein 6.3 g/dL (6.4-8.9); eGFR For African Americans > 60 (> 60); eGFR For Non-African Americans > 60 (> 60)
--- NOTE | 2018-12-20 08:16 | Internal Med Progress Note ---
<Rashard Samaniego - Last Filed: 12/20/18 11:04> Hospitalist Progress Note - Encounter Date of Encounter: 12/20/18 Time of Encounter: 09:10 - Exam Vitals: Temp Pulse Resp BP Pulse Ox 97.8 F 44 15 196/88 93 12/20/18 09:06 12/20/18 09:06 12/20/18 09:06 12/20/18 09:06 12/20/18 09:06 - Assessment and Plan (1) CHF (congestive heart failure) Current Visit: Yes Status: Acute (2) Bradycardia Current Visit: Yes Status: Acute (3) Thrombocytopenia Current Visit: Yes Status: Acute (4) Afib Current Visit: Yes Status: Chronic (5) Hypertension Current Visit: Yes Status: Acute (6) Daily consumption of alcohol Current Visit: Yes Status: Acute (7) CHRISTIANO (obstructive sleep apnea) Current Visit: No Status: Chronic (8) Morbid obesity with BMI of 40.0-44.9, adult Current Visit: Yes Status: Chronic - Time Spent with Patient Total time spent is greater than 50% in coordination of care (as documented) at patient's floor/unit and/or counseling patient: Internal Medicine: Result - Labs CBC & Chem 7: 12/20/18 00:27 12/20/18 00:27 Labs: Short CBC 12/20/18 Range/Units 00:27 WBC 8.3 (4.3-11.1) K/mcL Hgb 14.8 (12.9-16.9) g/dL Hct 45.7 (37.5-50.1) % Plt Count 129 L (140-400) K/mcL Neutrophils # 5.8 (1.6-8.9) K/mcL BMP 12/20/18 00:27 Sodium 142 Potassium 3.6 Chloride 105 Carbon Dioxide 26 BUN 24 H Creatinine 1.06 Glucose 108 H Calcium 8.8 Liver Function 12/20/18 Range/Units 00:27 Total Bilirubin 1.5 H (0.3-1.0) mg/dL AST 19 (13-39) Units/L ALT 12 (7-52) Units/L Alkaline Phosphatase 93 (34-104) Units/L Albumin 3.7 (3.5-5.7) g/dL - ABG Interpretation ABG results: PT/INR, D-dimer PT 25.7 Seconds (9.4-12.1) H 12/20/18 00:27 - Impressions Impressions Echocardiogram 12/19/18 10:25 Impressions: Technically sub-optimal due to poor echocardiographic windows. LVEF 55%. Mildly dilated left ventricle. Despite the use of contrast enhancement, suboptimal LV wall motion evaluation. Overall, LV wall motion and function appear normal. Atypical septal motion consistent with bundle branch block. Indeterminate diastolic function. Right ventricle was not well visualized. Grossly, it is dilated with normal function. Mild aortic regurgitation. Severe pulmonary hypertension. Estimated RVSP is 67 mmHg. Findings: Study Quality * Technically sub-optimal due to poor echocardiographic windows. ECG Findings * Rhythm appears to be atrial fibrillation. Bundle branch block noted. Left Ventricle * LVEF 55%. Mildly dilated left ventricle. * Despite the use of contrast enhancement, suboptimal LV wall motion evaluation. * Overall, LV wall motion and function appear normal. * Atypical septal motion consistent with bundle branch block. * Indeterminate diastolic function. Right Ventricle * Right ventricle was not well visualized. Grossly, it is dilated with normal function. Left Atrium * Severely dilated left atrium. Right Atrium * Moderately dilated right atrium. Interatrial Septum * Interatrial septum not well evaluated. Aortic Valve * Aortic valve not well visualized. * No aortic stenosis. * Mild aortic regurgitation. Mitral Valve * Normal mitral valve structure and function. * No mitral stenosis. * Trace mitral regurgitation. Tricuspid Valve * Normal tricuspid valve structure and function. * Trace tricuspid regurgitation. * Severe pulmonary hypertension. * Estimated RVSP is 67 mmHg. * Estimated RA pressure is 3 mmHg. Pulmonic Valve * Pulmonic valve not well visualized. * No pulmonic regurgitation. Aorta * Normally sized aortic root. Pericardium * There is a trivial pericardial effusion present. IVC * Normal IVC dimensions and inspiratory collapse. Pulmonary Artery * Pulmonary artery not well visualized. Consult Discharge Plan - Plan Referrals: Eren Najera MD [Primary Care Provider] - 12/23/18 8:40 am - Attending Attestation I saw evaluated and examined this patient and reviewed objective data including labs and my medical decision-making was reviewed with the Resident Physician, Bunny Leonardo. I agree with the documented findings, disposition and treatment plan as described except to any changes set forth below. We independently had fa ce-to-face contact with the patient. Patient doing better today. Respiratory status has improved. Sitting up in bed. Denies any chest pain. Underwent initial part of his nuclear stress test today. Will repeat need repeat imaging tomorrow. Continue Lasix intravenously. Blood pressure is better controlled today. Patient has been started on Norvasc in addition to lisinopril. Remains bradycardic. Avoiding any beta blockers. INR is therapeutic. <Bunny Leonardo - Last Filed: 12/20/18 17:21> Hospitalist Progress Note - Encounter Date of Encounter: 12/20/18 - Subjective Interval History: Pt seen and examined at bedside. No acute events overnight. Multiple family members at bedside. No new or acute complaints. Denies any fever, chills, chest pain, shortness of breath, abdominal pain, nausea, or vomiting. - Exam Vitals: Temp Pulse Resp BP Pulse Ox 97.6 F 45 16 156/68 92 12/20/18 03:24 12/20/18 03:24 12/20/18 03:24 12/20/18 03:24 12/20/18 03:24 Exam: General: obese male in no acute distress Head: NCAT Eyes: PERRL, EOMI, sclera anicteric, conjunctiva pink Neck: supple, trachea midline Lungs: CTA bilaterally. non-labored breathing on room air. No wheezes, rales, or rhonchi appreciated Heart: RRR +S1 +s2 No murmurs, clicks, or rubs GI: abdomen soft, obese, non-tender Extremities: warm, radial pulses palpable and symmetrical. no edema, cyanosis, or calf tenderness Neuro: A&Ox3. No focal deficits. No speech difficulty or abnormality Skin: warm, dry, intact - Assessment and Plan (1) CHF (congestive heart failure) Current Visit: Yes Status: Acute Assessment and Plan: Presented with dyspnea on exertion - In ED HR 30-40s. Heart rate now 52 - BNP 608 - troponin 0.03 - Chest x-ray showing small right effusion with right basilar airspace disease either atelectasis or pneumonia. - EKG showing atrial fibrillation, HR 57, no ST or T wave changes indicating ischemia. - In the ED the patient was given Lasix 40 mg IV. - Echo demonstrated the following: Technically sub-optimal due to poor echocardiographic windows. LVEF 55%. Mildly dilated left ventricle. Despite the use of contrast enhancement, suboptimal LV wall motion evaluation. Overall, LV wall motion and function appear normal. Atypical septal motion consistent with bundle branch block. Indeterminate diastolic function. Right ventricle was not well visualized. Grossly, it is dilated with normal function. Mild aortic regurgitation. Severe pulmonary hypertension. Estimated RVSP is 67 mmHg. -cardiology consulted - Day 1 of 2 stress test today -continue home lisinopril, simvastatin. -No beta shea due to bradycardia -1.5L fluid restrictive diet -strict I&Os (2) Bradycardia Current Visit: Yes Status: Acute Assessment and Plan: In ED HR 30-40s, continues to be in the 40s Follows with the Dr. Montelongo as outpatient. Asymptomatic aside from dyspnea on exertion -EKG showing atrial fibrillation, HR 57, no ST or T wave changes indicating ischemia. plan -cardiology consulted - recommend stress test. after that will evaluate for possible pacemaker -Continue cardiac telemetry (3) Thrombocytopenia Current Visit: Yes Status: Acute Assessment and Plan: Thrombocytopenia with platelets of 129 -Suspect possible etiology may be liver cirrhosis or LEE as patient has history of daily alcohol use for over 20 years. -PT 25.7 -INR 2.3 in the setting of taking warfarin -no obvious active bleeding Continue to monitor (4) Afib Current Visit: Yes Status: Chronic Assessment and Plan: History of atrial fibrillation on anticoagulation with warfarin. 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 He denies ever having withdrawal symptoms or seizures. -CIWA protocol with Ativan PRN. (7) CHRISTIANO (obstructive sleep apnea) Current Visit: Yes Status: Chronic Assessment and Plan: Continue BiPAP (8) Morbid obesity with BMI of 40.0-44.9, adult Current Visit: Yes Status: Chronic Assessment and Plan: chronic issue DVT Prophylaxis: on coumadin - Time Spent with Patient Total time spent is greater than 50% in coordination of care (as documented) at patient's floor/unit and/or counseling patient: Internal Medicine: Result - Labs CBC & Chem 7: 12/20/18 00:27 12/20/18 00:27 Labs: Short CBC 12/20/18 Range/Units 00:27 WBC 8.3 (4.3-11.1) K/mcL Hgb 14.8 (12.9-16.9) g/dL Hct 45.7 (37.5-50.1) % Plt Count 129 L (140-400) K/mcL Neutrophils # 5.8 (1.6-8.9) K/mcL BMP 12/20/18 00:27 Sodium 142 Potassium 3.6 Chloride 105 Carbon Dioxide 26 BUN 24 H Creatinine 1.06 Glucose 108 H Calcium 8.8 Liver Function 12/20/18 Range/Units 00:27 Total Bilirubin 1.5 H (0.3-1.0) mg/dL AST 19 (13-39) Units/L ALT 12 (7-52) Units/L Alkaline Phosphatase 93 (34-104) Units/L Albumin 3.7 (3.5-5.7) g/dL - ABG Interpretation ABG results: PT/INR, D-dimer PT 25.7 Seconds (9.4-12.1) H 12/20/18 00:27 - Impressions Impressions Echocardiogram 12/19/18 10:25 Impressions: Technically sub-optimal due to poor echocardiographic windows. LVEF 55%. Mildly dilated left ventricle. Despite the use of contrast enhancement, suboptimal LV wall motion evaluation. Overall, LV wall motion and function appear normal. Atypical septal motion consistent with bundle branch block. Indeterminate diastolic function. Right ventricle was not well visualized. Grossly, it is dilated with normal function. Mild aortic regurgitation. Severe pulmonary hypertension. Estimated RVSP is 67 mmHg. Findings: Study Quality * Technically sub-optimal due to poor echocardiographic windows. ECG Findings * Rhythm appears to be atrial fibrillation. Bundle branch block noted. Left Ventricle * LVEF 55%. Mildly dilated left ventricle. * Despite the use of contrast enhancement, suboptimal LV wall motion evaluation. * Overall, LV wall motion and function appear normal. * Atypical septal motion consistent with bundle branch block. * Indeterminate diastolic function. Right Ventricle * Right ventricle was not well visualized. Grossly, it is dilated with normal function. Left Atrium * Severely dilated left atrium. Right Atrium * Moderately dilated right atrium. Interatrial Septum * Interatrial septum not well evaluated. Aortic Valve * Aortic valve not well visualized. * No aortic stenosis. * Mild aortic regurgitation. Mitral Valve * Normal mitral valve structure and function. * No mitral stenosis. * Trace mitral regurgitation. Tricuspid Valve * Normal tricuspid valve structure and function. * Trace tricuspid regurgitation. * Severe pulmonary hypertension. * Estimated RVSP is 67 mmHg. * Estimated RA pressure is 3 mmHg. Pulmonic Valve * Pulmonic valve not well visualized. * No pulmonic regurgitation. Aorta * Normally sized aortic root. Pericardium * There is a trivial pericardial effusion present. IVC * Normal IVC dimensions and inspiratory collapse. Pulmonary Artery * Pulmonary artery not well visualized. <Rashard Samaniego - Last Filed: 12/20/18 11:04> (1) CHF (congestive heart failure) Qualifiers: Heart failure type: unspecified Heart failure chronicity: acute Qualified Code(s): I50.9 - Heart failure, unspecified (4) Afib Qualifiers: Atrial fibrillation type: unspecified Qualified Code(s): I48.91 - Unspecified atrial fibrillation (5) Hypertension Qualifiers: Hypertension type: essential hypertension Qualified Code(s): I10 - Essential (primary) hypertension <Bunny Leonardo - Last Filed: 12/20/18 17:21> (1) CHF (congestive heart failure) Qualifiers: Heart failure type: unspecified Heart failure chronicity: acute Qualified Code(s): I50.9 - Heart failure, unspecified (4) Afib Qualifiers: Atrial fibrillation type: unspecified Qualified Code(s): I48.91 - Unspecified atrial fibrillation (5) Hypertension Qualifiers: Hypertension type: essential hypertension Qualified Code(s): I10 - Essential (primary) hypertension
[2018-12-20] MEDS: amLODIPine 5 MG TABLET PO SCH ×2 (09:52→21:39)
[2018-12-20] MEDS: Colchicine 0.6 MG TABLET PO SCH (09:52)
[2018-12-20] MEDS: Isosorbide MONOnitrate (24 HR) 30 MG TAB.ER.24H PO SCH (09:52)
[2018-12-20] MEDS: Furosemide 20 MG/2 ML VIAL IVP SCH (09:52)
[2018-12-20] MEDS: Lisinopril 20 MG TABLET PO SCH (09:52)
[2018-12-20] MEDS ORDERED: *HR* Warfarin 5 MG TABLET PO ONE (18:00)
[2018-12-20] MEDS: Melatonin 3 MG TABLET PO SCH (21:44)
[2018-12-21 05:15] LABS: Basophils # 0.1 K/mcL (0.0-0.2); Basophils % 0.6 %; Eosinophils # 0.2 K/mcL (0.0-0.6); Eosinophils % 2.2 %; Hematocrit 47.5 % (37.5-50.1); Hemoglobin 15.7 g/dL (12.9-16.9); Immature Granulocytes % 0.5 % (0-4); Lymphocytes # 1.4 K/mcL (0.6-4.6); Lymphocytes % 17.5 %; Mean Corpuscular HGB Conc 33.1 g/dL (31.6-35.5); Mean Corpuscular Hemoglobin 33.2 pg (28.0-33.3); Mean Corpuscular Volume 100.4 fL (83.0-100.0); Mean Platelet Volume 11.6 fL (9.4-12.4); Monocytes % 12.8 %; Neutrophils # 5.2 K/mcL (1.6-8.9); Platelet Count 145 K/mcL (140-400); Red Blood Count 4.73 M/mcL (4.19-5.50); Red Cell Distribution Width 13.8 % (11.5-14.5); Segmented Neutrophils % 66.4 %; White Blood Count 7.9 K/mcL (4.3-11.1)
[2018-12-21 05:22] LABS: INR 2.1; Prothrombin Time 23.9 Seconds (9.4-12.1)
[2018-12-21 05:30] LABS: BUN/Creatinine Ratio 27 (6-26); Blood Urea Nitrogen 26 mg/dL (8-23); Carbon Dioxide 26 mEq/L (23-29); Chloride 105 mEq/L (98-107); Potassium 3.6 mEq/L (3.5-5.1); Sodium 141 mEq/L (136-145); eGFR For African Americans > 60 (> 60)
[2018-12-21 05:31] LABS: Alanine Aminotransferase 13 Units/L (7-52); Albumin 3.9 g/dL (3.5-5.7); Albumin/Globulin Ratio 1.3 (1.1-2.2); Alkaline Phosphatase 114 Units/L (34-104); Aspartate Amino Transferase 20 Units/L (13-39); Bilirubin,Total 1.6 mg/dL (0.3-1.0); Calcium 9.3 mg/dL (8.6-10.3); Globulin 2.9 g/dL (2.4-3.5); Glucose 110 mg/dL (70-105); Osmolality,Calculated 297 (280-300); Total Protein 6.8 g/dL (6.4-8.9); eGFR For Non-African Americans > 60 (> 60)
[2018-12-21] MEDS ORDERED: Regadenoson 0.4 MG/5 ML SYRINGE IVP ONE (06:21)
--- NOTE | 2018-12-21 08:26 | Internal Med Progress Note ---
<Rashard Samaniego - Last Filed: 12/21/18 13:48> Hospitalist Progress Note - Encounter Date of Encounter: 12/21/18 Time of Encounter: 09:25 - Exam Vitals: Temp Pulse Resp BP Pulse Ox 97.4 F L 52 15 142/67 94 12/21/18 11:15 12/21/18 11:15 12/21/18 11:15 12/21/18 11:15 12/21/18 11:15 - Assessment and Plan (1) CHF (congestive heart failure) Current Visit: Yes Status: Acute (2) Bradycardia Current Visit: Yes Status: Acute (3) Thrombocytopenia Current Visit: Yes Status: Acute (4) Afib Current Visit: Yes Status: Chronic (5) Hypertension Current Visit: Yes Status: Acute (6) Daily consumption of alcohol Current Visit: Yes Status: Acute (7) CHRISTIANO (obstructive sleep apnea) Current Visit: Yes Status: Chronic (8) Morbid obesity with BMI of 40.0-44.9, adult Current Visit: Yes Status: Chronic - Time Spent with Patient Total time spent is greater than 50% in coordination of care (as documented) at patient's floor/unit and/or counseling patient: Internal Medicine: Result - Labs CBC & Chem 7: 12/21/18 04:05 12/21/18 04:05 Labs: Short CBC 12/21/18 Range/Units 04:05 WBC 7.9 (4.3-11.1) K/mcL Hgb 15.7 (12.9-16.9) g/dL Hct 47.5 (37.5-50.1) % Plt Count 145 (140-400) K/mcL Neutrophils # 5.2 (1.6-8.9) K/mcL BMP 12/21/18 04:05 Sodium 141 Potassium 3.6 Chloride 105 Carbon Dioxide 26 BUN 26 H Creatinine 0.96 Glucose 110 H Calcium 9.3 Liver Function 12/21/18 Range/Units 04:05 Total Bilirubin 1.6 H (0.3-1.0) mg/dL AST 20 (13-39) Units/L ALT 13 (7-52) Units/L Alkaline Phosphatase 114 H (34-104) Units/L Albumin 3.9 (3.5-5.7) g/dL - ABG Interpretation ABG results: PT/INR, D-dimer PT 23.9 Seconds (9.4-12.1) H 12/21/18 04:05 Consult Discharge Plan - Plan Referrals: Eren Najera MD [Primary Care Provider] - 12/23/18 8:40 am - Attending Attestation I saw evaluated and examined this patient and reviewed objective data including labs and my medical decision-making was reviewed with the Resident Physician, Conor Ramos. I agree with the documented findings, disposition and treatment plan as described except to any changes set forth below. We independently had [id number] contact with the patient. Patient completed his stress test today. Nuclear imaging does not show any signs of ischemia. Cardiology evaluated patient and recommended consultation for potential pacemaker placement. His lower extremity swelling has improved. Patient is breathing easier. Heart sounds or breath sounds are normal. Will switch Lasix to oral dosing. Continue monitoring blood pressure. Blood pressure is mostly well controlled with intermittent elevations. Continue current medications. INR is therapeutic. We will discuss with cardiology and hold Coumadin in case patient would need pacemaker tomorrow. <Conor Ramos - Last Filed: 12/21/18 18:01> Hospitalist Progress Note - Encounter Date of Encounter: 12/21/18 - Subjective Interval History: Patient was seen and examined at bedside; he is feeling well today. He reports that his respiratory status has greatly improved since initial presentation. He denies orthopnea, cough, fever, chills, dizziness, lightheadedness, or palpitations. He states that the swelling in his lower extremities has improved. He does have chronic swelling in his left lower extremity, but says that it is no worse than baseline. Patients stress test was negative for ischemia or infarct. Plan is for assessment by electrophysiology for possible pacemaker placement. Patients Coumadin is being held in anticipation for this. We are also switching Lasix from 20 mg IV 20 mg by mouth. - Exam Vitals: Temp Pulse Resp BP Pulse Ox 97.5 F L 48 16 144/67 96 12/21/18 02:46 12/21/18 04:30 12/21/18 02:46 12/21/18 04:30 12/21/18 02:46 Exam: General: A&O X3, conversant, no acute distress Head: atraumatic, normocephalic Eye: PERRL, EOMI, conjuntiva pink, sclera anicteric Neck: Supple, trachea midline; No lymphadenopathy Respiratory: CTAB. No accessory muscle use, wheezes, rales, or rhonchi Cardiovascular: Bradycardia, irregularly irregular, +S1, +S2; no murmurs, rubs, gallops Abdomen: Soft, nontender Extremities: Chronic skin changes in the lower extremities bilaterally consistent with vascular disease; trace pedal edema in the left lower extremity Neurological: No focal deficits noted Psychiatric: Normal affect, normal mood Skin: Dry, intact - Assessment and Plan (1) CHF (congestive heart failure) Current Visit: Yes Status: Acute Assessment and Plan: Assessment - Initially presented to the emergency department with dyspnea on exertion - CXR initially demonstrated small right pleural effusion with right basilar airspace disease, atelectasis versus pneumonia - Was started on IV Lasix in the ED and was admitted to the inpatient setting for likely CHF -TTE with LVEF 55%, mildly dilated LV, indeterminate diastolic function, mild AR, severe pulmonary HTN -Stress test negative for ischemia or infarct Plan - Will switch Lasix from 20 mg IV daily to 40 mg PO - Beta blockers not being given due to bradycardia - Strict intake and output, fluid restriction of 1.5 L per day (2) Bradycardia Current Visit: Yes Status: Acute Assessment and Plan: - Patient has had a low heart rate in the 40s during hospitalization - Continuous telemetry - He has been asymptomatic; denies dizziness, lightheadedness, palpitations, weakness, or visual disturbances - Cardiology is following; patient will be evaluated tomorrow for possible pacemaker placement - Will hold patients Coumadin in anticipation for possible pacemaker placement (3) Daily consumption of alcohol Current Visit: Yes Status: Acute Assessment and Plan: - Patient has a known history of alcohol abuse - No known history of alcohol withdrawal -CIWA protocol in place (4) Afib Current Visit: Yes Status: Chronic Assessment and Plan: - Patient has a known history of atrial fibrillation on Coumadin (5) CHRISTIANO (obstructive sleep apnea) Current Visit: Yes Status: Chronic Assessment and Plan: - Continue BiPAP (6) Morbid obesity with BMI of 40.0-44.9, adult Current Visit: Yes Status: Chronic Assessment and Plan: - Chronic issue - Time Spent with Patient Total time spent is greater than 50% in coordination of care (as documented) at patient's floor/unit and/or counseling patient: Internal Medicine: Result - Labs CBC & Chem 7: 12/21/18 04:05 12/21/18 04:05 Labs: Short CBC 12/21/18 Range/Units 04:05 WBC 7.9 (4.3-11.1) K/mcL Hgb 15.7 (12.9-16.9) g/dL Hct 47.5 (37.5-50.1) % Plt Count 145 (140-400) K/mcL Neutrophils # 5.2 (1.6-8.9) K/mcL BMP 12/21/18 04:05 Sodium 141 Potassium 3.6 Chloride 105 Carbon Dioxide 26 BUN 26 H Creatinine 0.96 Glucose 110 H Calcium 9.3 Liver Function 12/21/18 Range/Units 04:05 Total Bilirubin 1.6 H (0.3-1.0) mg/dL AST 20 (13-39) Units/L ALT 13 (7-52) Units/L Alkaline Phosphatase 114 H (34-104) Units/L Albumin 3.9 (3.5-5.7) g/dL - ABG Interpretation ABG results: PT/INR, D-dimer PT 23.9 Seconds (9.4-12.1) H 12/21/18 04:05 <Rashard Samaniego - Last Filed: 12/21/18 13:48> (1) CHF (congestive heart failure) Qualifiers: Heart failure type: diastolic Heart failure chronicity: acute Qualified Code(s): I50.31 - Acute diastolic (congestive) heart failure (4) Afib Qualifiers: Atrial fibrillation type: unspecified Qualified Code(s): I48.91 - Unspecified atrial fibrillation (5) Hypertension Qualifiers: Hypertension type: essential hypertension Qualified Code(s): I10 - Essential (primary) hypertension <Conor Ramos - Last Filed: 12/21/18 18:01> (1) CHF (congestive heart failure) Qualifiers: Heart failure type: diastolic Heart failure chronicity: acute Qualified Code(s): I50.31 - Acute diastolic (congestive) heart failure (4) Afib Qualifiers: Atrial fibrillation type: unspecified Qualified Code(s): I48.91 - Unspecified atrial fibrillation
[2018-12-21] MEDS: Colchicine 0.6 MG TABLET PO SCH (10:11)
[2018-12-21] MEDS: amLODIPine 5 MG TABLET PO SCH ×2 (10:11→21:29)
[2018-12-21] MEDS: Lisinopril 20 MG TABLET PO SCH (10:11)
[2018-12-21] MEDS: Isosorbide MONOnitrate (24 HR) 30 MG TAB.ER.24H PO SCH (10:11)
[2018-12-21] MEDS: Furosemide 20 MG/2 ML VIAL IVP SCH (10:12)
--- NOTE | 2018-12-21 12:58 | Cardiology Progress Note ---
Date of Encounter: 12/21/18 Time of Encounter: 12:55 Assessment and Plan (1) Dyspnea Current Visit: Yes Status: Acute Per cardiology: -Dyspnea may be related to acute diastolic CHF. Continue diuresis. -Echocardiogram with LVEF 55%, mildly dilated LV, indeterminate diastolic function, mild AR, severe pulmonary hypertension. -Stress test negative for ischemia or infarct. -Will continue to monitor on telemetry. -Has significant conduction system disease. May need pacemaker. Will consult EP in am. Qualifiers: Dyspnea type: shortness of breath Qualified Code(s): R06.02 - Shortness of breath; R06.00 - Dyspnea, unspecified; R06.01 - Orthopnea (2) CHF (congestive heart failure) Current Visit: Yes Status: Acute Per cardiology: -Acute diastolic CHF reports NYHA class II symptoms. -Chest x-ray with pleural effusion. BNP 608. -ON IV lasix. -TTE as above with LVEF preserved. -Continue diuresis. Qualifiers: Heart failure type: diastolic Heart failure chronicity: acute Qualified Code(s): I50.31 - Acute diastolic (congestive) heart failure (3) Permanent atrial fibrillation Current Visit: Yes Status: Acute Per cardiology: -Has chronic a fib with slow VR. Bradycardic on exam and telemetry. - Has been bradycardic in past and asymptomatic, but now has lightheadedness, decreased exercise tolerance, dyspnea that may be related to chronotropic incompetence. -TTE with LVEF preserved. -Stress test negative for ischemia or infarct. -Will continue to monitor on telemetry. Continue coumadin. -Will consult EP in am. (4) Elevated troponin Current Visit: Yes Status: Acute Per cardiology: -Mild, adynamic troponin elevation in the setting of CHF. -Denies chest pain. -No acute ischemic ECG changes noted. -TTE with LVEF preserved, no SWMA. -Stress test negative. -Demand ischemia. No cardiac rehab consult warranted. Discussion w patient/family: The assessment and plan as outlined above was discussed with the patient and/or family members who expressed understanding and agreement. All questions were answered. Thank you for involving us in the care of your patient. Please call with any questions. Discussed and reviewed with Subjective Principal diagnosis: Dyspnea Interval history: Patient reports he did not sleep well last night. Sitting in bed, eating lunch. Objective Vital Signs, Last 4 Hours Temp Pulse Resp BP Pulse Ox 12/21/18 11:15 97.4 F L 52 15 142/67 94 12/21/18 09:07 97.5 F L 44 15 180/87 95 General: Conversant, No Apparent Distress HEENT: Atraumatic, Normocephaly, Mucus Membranes Moist Neck: No JVD, Normal carotid pulses Cardiac: Normal S1 and S2, No Murmur, Other (Irregularly irregular) Lungs: Normal Breath Sounds, No Wheeze, Rales, Rhonchi Neuro: Alert and responsive, No focal deficits noted Abdomen: Soft, Non-Tender Skin: No rashes noted on visualized skin Musculoskeletal: No Chest Wall Tenderness Extremities: No Clubbing, No Cyanosis, No Edema, Normal Pulses Results 12/21/18 04:05 12/21/18 04:05 Lab Results Active Medications Acetaminophen (Tylenol) 325 mg PO Q6HR PRN PRN Reason: Pain Stop: 06/20/19 18:42 Last Admin: 12/19/18 19:00 Dose: 325 mg Documented by: Hydrocodone Bitart/Acetaminophen ([place] 5-325 Mg) 1 tab PO Q8H PRN PRN Reason: Pain Stop: 06/20/19 10:52 Allopurinol (Zyloprim) 300 mg PO DAILY [facility] Stop: 06/20/19 11:01 Last Admin: 12/21/18 10:12 Dose: 300 mg Documented by: Amlodipine Besylate (Norvasc) 5 mg PO BID [facility]; Protocol Stop: 06/20/19 21:01 Last Admin: 12/21/18 10:11 Dose: 5 mg Documented by: Atorvastatin Calcium (Lipitor) 40 mg PO HS TABBY Stop: 06/20/19 21:01 Last Admin: 12/20/18 21:39 Dose: 40 mg Documented by: Colchicine (Colcrys) 0.6 mg PO DAILY [facility] Stop: 06/20/19 11:01 Last Admin: 12/21/18 10:11 Dose: 0.6 mg Documented by: Doxazosin Mesylate (Cardura) 4 mg PO DAILY [facility] Stop: 06/20/19 11:01 Last Admin: 12/21/18 10:11 Dose: 4 mg Documented by: Furosemide (Lasix) 20 mg IVP DAILY [facility] Stop: 06/20/19 09:01 Last Admin: 12/21/18 10:12 Dose: 20 mg Documented by: Hydralazine HCl (Hydralazine) 10 mg IVP Q6HR PRN PRN Reason: Hypertension Stop: 06/20/19 11:24 Last Admin: 12/21/18 03:17 Dose: 10 mg Documented by: Isosorbide Mononitrate (Imdur) 30 mg PO DAILY [facility] Stop: 06/20/19 14:16 Last Admin: 12/21/18 10:11 Dose: 30 mg Documented by: Labetalol HCl (Labetalol) 10 mg IVP Q1H PRN PRN Reason: Blood Pressure - High Stop: 06/20/19 15:33 Last Admin: 12/19/18 17:52 Dose: 10 mg Documented by: Lisinopril (Zestril) 20 mg PO DAILY [facility] Stop: 06/20/19 09:01 Last Admin: 12/21/18 10:11 Dose: 20 mg Documented by: Lorazepam (Ativan) 1 mg IVP Q1H PRN PRN Reason: Alcohol Withdrawal Stop: 06/19/19 20:33 Lorazepam (Ativan) 2 mg IVP Q4HR PRN PRN Reason: CIWA Score of 10-21 Stop: 06/19/19 20:33 Melatonin (Melatonin) 3 mg PO HS [facility] Stop: 06/21/19 21:01 Last Admin: 12/20/18 21:44 Dose: 3 mg Documented by: Naloxone HCl (Narcan) 0.4 mg IVP Q2MPRN PRN PRN Reason: SEE COMMENTS Stop: 06/19/19 20:31 Omeprazole (Prilosec) 20 mg PO 0630 TABBY; Protocol Stop: 06/20/19 06:31 Last Admin: 12/21/18 05:31 Dose: Not Given Documented by: Warfarin Sodium (Coumadin Perpt) 0 each PO DAILY@1800 PRN; Protocol PRN Reason: SEE COMMENTS Stop: 06/20/19 18:01 Warfarin Sodium (Coumadin) 7.5 mg PO 1800 ONE; Protocol Stop: 12/21/18 18:01 Laboratory Tests 12/18/18 12/18/18 12/19/18 17:56 23:42 06:03 Hgb INR Creatinine Troponin I 0.03 0.04 H* 0.04 H* 12/21/18 12/21/18 12/21/18 04:05 04:05 04:05 Hgb 15.7 INR 2.1 Creatinine 0.96 Troponin I - Imaging and Cardiology Chest Xray: report reviewed Stress Test: report reviewed Echo: report reviewed - EKG Interpretation EKG results cardiology: other (Telemetry reviewed with average HR previous 12 hours noted to be 47, a.fib with SVR. PVCs noted.) Consult Discharge Plan - Plan Referrals: Eren Najera MD [Primary Care Provider] - 12/23/18 8:40 am
[2018-12-21] MEDS ORDERED: Furosemide 20 MG TABLET PO SCH (17:00)
[2018-12-21] MEDS ORDERED: *HR* Warfarin 7.5 MG TABLET PO ONE (18:00)
[2018-12-21] MEDS: Melatonin 3 MG TABLET PO SCH (21:34)
[2018-12-22 05:18] LABS: Basophils # 0.1 K/mcL (0.0-0.2); Eosinophils # 0.2 K/mcL (0.0-0.6); Eosinophils % 2.4 %; Hematocrit 47.1 % (37.5-50.1); Hemoglobin 15.5 g/dL (12.9-16.9); Immature Granulocytes % 0.5 % (0-4); Lymphocytes # 1.4 K/mcL (0.6-4.6); Lymphocytes % 17.7 %; Mean Corpuscular HGB Conc 32.9 g/dL (31.6-35.5); Mean Corpuscular Hemoglobin 32.8 pg (28.0-33.3); Mean Corpuscular Volume 99.8 fL (83.0-100.0); Mean Platelet Volume 11.4 fL (9.4-12.4); Monocytes % 12.5 %; Neutrophils # 5.2 K/mcL (1.6-8.9); Platelet Count 148 K/mcL (140-400); Red Blood Count 4.72 M/mcL (4.19-5.50); Red Cell Distribution Width 13.8 % (11.5-14.5); Segmented Neutrophils % 65.9 %; White Blood Count 7.9 K/mcL (4.3-11.1)
[2018-12-22 05:24] LABS: INR 2.3; Prothrombin Time 26.4 Seconds (9.4-12.1)
[2018-12-22 05:42] LABS: BUN/Creatinine Ratio 25 (6-26); Blood Urea Nitrogen 26 mg/dL (8-23); Calcium 9.1 mg/dL (8.6-10.3); Carbon Dioxide 26 mEq/L (23-29); Chloride 104 mEq/L (98-107); Glucose 104 mg/dL (70-105); Osmolality,Calculated 297 (280-300); Potassium 3.7 mEq/L (3.5-5.1); Sodium 141 mEq/L (136-145); eGFR For African Americans > 60 (> 60); eGFR For Non-African Americans > 60 (> 60)
[2018-12-22] MEDS: Furosemide 40 MG TABLET PO SCH (08:39)
[2018-12-22] MEDS: Isosorbide MONOnitrate (24 HR) 30 MG TAB.ER.24H PO SCH (08:39)
[2018-12-22] MEDS: Colchicine 0.6 MG TABLET PO SCH (08:39)
[2018-12-22] MEDS: amLODIPine 5 MG TABLET PO SCH ×2 (08:39→21:10)
[2018-12-22] MEDS: Lisinopril 20 MG TABLET PO SCH (08:39)
--- NOTE | 2018-12-22 09:41 | Internal Med Progress Note ---
<ErvinMarcy - Last Filed: 12/22/18 09:35> Hospitalist Progress Note - Encounter Date of Encounter: 12/22/18 Time of Encounter: 08:36 - Subjective Interval History: Patient examined at bedside. States that he feels much better save his lack of sleep, but glad his respiratory function is improved. He denies orthopnea, cough, fever, chills, dizziness, lightheadedness, or palpitations. He states that the swelling in his lower extremities has improved. He does have chronic swelling in his left lower extremity, but says that it is no worse than baseline. Awaiting Cardiology consult for pacemaker implant. Coumadin is still being held in case a pacemaker is implanted. - Exam Vitals: Temp Pulse Resp BP Pulse Ox 97.8 F 40 17 152/76 94 12/22/18 07:25 12/22/18 07:25 12/22/18 07:25 12/22/18 07:25 12/22/18 07:25 Exam: General: A&O X3, conversant and pleasant, no acute distress Head: atraumatic, normocephalic Eye: PERRL, EOMI, conjuntiva pink, sclera anicteric Neck: Supple, trachea midline; No lymphadenopathy Respiratory: CTAB. No accessory muscle use, wheezes, rales, or rhonchi Cardiovascular: Bradycardia, irregularly irregular, +S1, +S2; no murmurs, rubs, gallops Abdomen: Soft, nontender Extremities: Chronic skin changes in the lower extremities bilaterally consistent with vascular disease; trace pedal edema in the left lower extremity Neurological: No focal deficits noted Psychiatric: Normal affect, normal mood Skin: Dry, intact - Assessment and Plan (1) CHF (congestive heart failure) Current Visit: Yes Status: Acute Assessment and Plan: - Initially presented to the emergency department with dyspnea on exertion - CXR initially demonstrated small right pleural effusion with right basilar airspace disease, atelectasis versus pneumonia - Was started on IV Lasix in the ED and was admitted to the inpatient setting for likely CHF -TTE with LVEF 55%, mildly dilated LV, indeterminate diastolic function, mild A R, severe pulmonary HTN -Stress test negative for ischemia or infarct Plan - Lasix from to 40 mg PO daily - Beta blockers not being given due to bradycardia - Strict intake and output, fluid restriction of 1.5 L per day (2) Bradycardia Current Visit: Yes Status: Acute Assessment and Plan: - Patient has had a low heart rate in the 40s during hospitalization - Continuous telemetry - He has been asymptomatic; denies dizziness, lightheadedness, palpitations, weakness, or visual disturbances - Cardiology is following; patient will be evaluated today for possible pacemaker placement - Will hold patients Coumadin in anticipation for possible pacemaker placement (3) Dyspnea Current Visit: Yes Status: Acute (4) DVT prophylaxis Current Visit: Yes Status: Acute (5) Daily consumption of alcohol Current Visit: Yes Status: Acute Assessment and Plan: - Patient has a known history of alcohol abuse - No known history of alcohol withdrawal -CIWA protocol in place (6) Dyspnea on exertion Current Visit: Yes Status: Acute (7) Elevated troponin Current Visit: Yes Status: Acute (8) Afib Current Visit: Yes Status: Chronic Assessment and Plan: - Patient has a known history of atrial fibrillation on Coumadin at home, currently withheld in anticipation for pacemaker implant. (9) CHRISTIANO (obstructive sleep apnea) Current Visit: Yes Status: Chronic Assessment and Plan: - Continue BiPAP - Time Spent with Patient Total time spent is greater than 50% in coordination of care (as documented) at patient's floor/unit and/or counseling patient: Internal Medicine: Result - Labs CBC & Chem 7: 12/22/18 04:32 12/22/18 04:32 Labs: Short CBC 12/22/18 Range/Units 04:32 WBC 7.9 (4.3-11.1) K/mcL Hgb 15.5 (12.9-16.9) g/dL Hct 47.1 (37.5-50.1) % Plt Count 148 (140-400) K/mcL Neutrophils # 5.2 (1.6-8.9) K/mcL BMP 12/22/18 04:32 Sodium 141 Potassium 3.7 Chloride 104 Carbon Dioxide 26 BUN 26 H Creatinine 1.04 Glucose 104 Calcium 9.1 - ABG Interpretation ABG results: PT/INR, D-dimer PT 26.4 Seconds (9.4-12.1) H 12/22/18 04:32 Consult Discharge Plan - Plan Referrals: Eren Najera MD [Primary Care Provider] - 12/23/18 8:40 am <Rashard Samaniego - Last Filed: 12/22/18 12:34> Hospitalist Progress Note - Encounter Date of Encounter: 12/22/18 Time of Encounter: 09:35 - Subjective Interval History: Patient lying down in bed. Denies any significant shortness of breath. Lower extremity swelling has improved. Remains bradycardic. No chest pain or palpitations. - Exam Vitals: Temp Pulse Resp BP Pulse Ox 97.8 F 40 17 152/76 94 12/22/18 07:25 12/22/18 07:25 12/22/18 07:25 12/22/18 07:12/22/18 07:25 Exam: General: Patient is alert, no acute distress, oriented x 3 Respiratory: Good respiratory effort. Normal breath sounds. No wheezing or crackles. Cardiovascular: Bradycardia. s1 and s2 normal No clicks, rubs, gallops, or murmurs. No pedal edema Abdomen: Abdomen is soft, nontender. Bowel sounds are present Musculoskeletal: Spontaneously moving all extremities Skin: warm, dry, intact. Neuro: Alert oriented x 3 normal cranial nerves, no focal deficits - Assessment and Plan (1) CHF (congestive heart failure) Current Visit: Yes Status: Acute (2) Bradycardia Current Visit: Yes Status: Acute (3) Thrombocytopenia Current Visit: Yes Status: Acute (4) Afib Current Visit: Yes Status: Chronic (5) Hypertension Current Visit: Yes Status: Acute (6) Daily consumption of alcohol Current Visit: Yes Status: Acute (7) CHRISTIANO (obstructive sleep apnea) Current Visit: Yes Status: Chronic (8) Morbid obesity with BMI of 40.0-44.9, adult Current Visit: Yes Status: Chronic - Time Spent with Patient Total time spent is greater than 50% in coordination of care (as documented) at patient's floor/unit and/or counseling patient: Internal Medicine: Result - Labs CBC & Chem 7: 12/22/18 04:32 12/22/18 04:32 Labs: Short CBC 12/22/18 Range/Units 04:32 WBC 7.9 (4.3-11.1) K/mcL Hgb 15.5 (12.9-16.9) g/dL Hct 47.1 (37.5-50.1) % Plt Count 148 (140-400) K/mcL Neutrophils # 5.2 (1.6-8.9) K/mcL BMP 12/22/18 04:32 Sodium 141 Potassium 3.7 Chloride 104 Carbon Dioxide 26 BUN 26 H Creatinine 1.04 Glucose 104 Calcium 9.1 - ABG Interpretation ABG results: PT/INR, D-dimer PT 26.4 Seconds (9.4-12.1) H 12/22/18 04:32 - Attending Attestation I saw evaluated and examined this patient and reviewed objective data including labs and my medical decision-making was reviewed with the Medical Student. I agree with the documented findings, disposition and treatment plan as described except to any changes set forth below. We independently had [id number] contact with the patient. Acute diastolic congestive heart failure: Continue Lasix. Clinically acute CHF has resolved. Patient has had -6 L fluid balance of far as documented on chart. Symptomatic bradycardia: With underlying atrial fibrillation. Patient to be evaluated by electrophysiology for potential pacemaker placement. Currently INR is supratherapeutic. Coumadin to be held in anticipation for potential pacemaker. Essential hypertension: Blood pressures is better controlled overall. Continue amlodipine, lisinopril. Not on any beta shea due to bradycardia. <Marcy Mueller - Last Filed: 12/22/18 09:35> (1) CHF (congestive heart failure) Qualifiers: Heart failure type: diastolic Heart failure chronicity: acute Qualified C ode(s): I50.31 - Acute diastolic (congestive) heart failure (3) Dyspnea Qualifiers: Dyspnea type: shortness of breath Qualified Code(s): R06.02 - Shortness of breath; R06.00 - Dyspnea, unspecified; R06.01 - Orthopnea (8) Afib Qualifiers: Atrial fibrillation type: unspecified Qualified Code(s): I48.91 - Unspecified atrial fibrillation <Rashard Samaniego - Last Filed: 12/22/18 12:34> (1) CHF (congestive heart failure) Qualifiers: Heart failure type: diastolic Heart failure chronicity: acute Qualified Code(s): I50.31 - Acute diastolic (congestive) heart failure (4) Afib Qualifiers: Atrial fibrillation type: unspecified Qualified Code(s): I48.91 - Unspecified atrial fibrillation (5) Hypertension Qualifiers: Hypertension type: essential hypertension Qualified Code(s): I10 - Essential (primary) hypertension
--- NOTE | 2018-12-22 11:44 | Electrophysiology Consult Note ---
<Araceli Guillen - Last Filed: 12/22/18 11:37> Date of Encounter: 12/22/18 Time of Encounter: 09:30 Assessment and Plan (1) Permanent atrial fibrillation Status: Acute Per cardiology: -Has chronic a fib with slow VR. Bradycardic on exam and telemetry. -Has been bradycardic in past and asymptomatic, but now has lightheadedness, decreased exercise tolerance, dyspnea that may be related to chronotropic incompetence. -Patient was diuresed ~6L, however remains symptomatic with shortness of breath, fatigue. -ECG with a.fib SVR, HR 57. RBBB, LAFB noted. -Average HR previous 24 hours noted to be 47, a.fib SVR. -TTE with LVEF preserved. -Stress test negative for ischemia or infarct. -Discussed and reviewed with Dr.John Barrientos, with symptomatic bradycardia, recommend pacemaker. Of note, would recommend INR ideally less than 1.8. Coumadin on hold. Discussed recommendations with patient, anticipate pacer on . Patient was also given the option of potential pacemaker as outpatient, as pacemaker is not emergent. Patient would like to discuss with pietro johnson and will make a decision. (2) Bradycardia Status: Acute Per cardiology: -See a.fib as above. Discussion w patient/family: The assessment and plan as outlined above was discussed with the patient and/or family members who expressed understanding and agreement. All questions were answered. Thank you for involving us in the care of your patient. Please call with any questions. Discussed and reviewed with Dr.John Barrientos History of Present Illness Consult date: 12/21/18 Consult reason: a.fib, bradycardia Chief complaint: SOTO History of present illness: Mr. Fox is a 83 year old male with a relevant past medical history of permanent a.fib, HTN, oliver's esophagus, DM, gout, CHRISTIANO, spinal stenosis, OA, HLD, venous insufficiency, who presented to [facility] with complaints of shortness of breath on exertion. Patient also reported increased fatigue, decreased exercise tolerance. Patient was evaluated by general cardiology and was recommended for EP consult to evaluate for possible pacemaker. Today, patient states shortness of breath is improved, however still reports fatigue. Family at bedside. Past Med Surg Social Fam HX - Past Medical History Attestation: Yes The following information was validated with the patient. Source: patient, old records reviewed Medical history: atrial fibrillation, cancer (colon), CHF, GERD, hypertension, other (CHRISTIANO) Additional medical history: bradycardia Psychiatric history: no psych history - Past Surgical History Surgical History: hip replacement, knee replacement Additional surgical history: achillies tendon repair, - Social History Smoking Status: Never smoker Smokeless Tobacco Status: No Alcohol use: recent (2 cocktails a day with 1.5 shots each) Drug use: none - Family History Father Living Status: Age at : 71 Hx Family Cardiac Disorders: Yes ([place]) Mother Hx Family Cancer: Yes (breast) Medications and Allergies Benazepril HCl 20 mg PO DAILY 01/13/18 [History] Doxazosin [Cardura] 4 mg PO DAILY 01/13/18 [History] HYDROcodone/Acet 5/325 mg [Cameron 5-325 mg] 1 tab PO Q8H PRN 01/13/18 [History] Multivitamin [One Daily Multivitamin] 1 tab PO DAILY 01/13/18 [History] [place]-3/Dha/Epa/Fish Oil [Fish Oil 1,000 mg Softgel] 1 cap PO DAILY 01/13/18 [History] Simvastatin [Zocor] 40 mg PO HS 01/13/18 [History] Vitamin E Acid Succinate [Vitamin E] 400 units PO DAILY 01/13/18 [History] Zinc [Zinc Chelated] 50 mg PO DAILY 01/13/18 [History] Allopurinol [Zyloprim 300 MG] 300 mg PO DAILY 12/18/18 [History] Colchicine [Colcrys] 0.6 mg PO DAILY 12/18/18 [History] Omeprazole 20 mg PO DAILY 12/18/18 [History] Furosemide [Lasix] 40 mg PO DAILY #14 tablet 12/26/18 [Rx] Isosorbide MONOnitrate (24 HR) [Imdur] 30 mg PO DAILY #30 tab.er.24h 12/26/18 [Rx] Naloxone [Narcan] 0.4 mg IVP Q2MPRN PRN inj 12/26/18 [Rx] Warfarin Sodium 5 mg PO QPM #0 12/26/18 [Rx] amLODIPine [Norvasc] 5 mg PO BID #60 tablet 12/26/18 [Rx] Allergy/AdvReac Type Severity Reaction Status Date / Time Penicillins Allergy Swelling Verified 03/29/18 10:44 of Lip/Tongue/Throat All Systems Review: The remainder of the systems were reviewed and are negative - Constitutional Constitutional: fatigue - Cardiovascular Cardiovascular: as per HPI, dyspnea on exertion Physical Examination Vital Signs Temperature 97.7 F 12/18/18 17:47 Pulse Rate 46 12/18/18 17:47 Respiratory Rate 20 12/18/18 17:47 Blood Pressure 156/77 12/18/18 17:47 O2 Sat by Pulse Oximetry 93 12/18/18 17:47 Temperature 97.8 F 12/22/18 07:25 Pulse Rate 40 12/22/18 07:25 Respiratory Rate 17 12/22/18 07:25 Blood Pressure 152/76 12/22/18 07:25 O2 Sat by Pulse Oximetry 94 12/22/18 07:25 Oxygen Delivery Oxygen Delivery Room Air General: Conversant, No Apparent Distress HEENT: Atraumatic, Normocephaly, Mucus Membranes Moist Neck: No JVD, Normal carotid pulses Cardiac: Normal S1 and S2, No Murmur, Other (Irregularly irregular) Lungs: Normal Breath Sounds, No Wheeze, Rales, Rhonchi Neuro: Alert and responsive, No focal deficits noted Abdomen: Soft, Non-Tender Skin: No rashes noted on visualized skin Musculoskeletal: No Chest Wall Tenderness Extremities: No Clubbing, No Cyanosis, Normal Pulses, Other (Mild bilateral pedal edema noted. ) Results 12/22/18 04:32 12/22/18 04:32 Lab Results Active Medications Acetaminophen (Tylenol) 325 mg PO Q6HR PRN PRN Reason: Pain Stop: 06/20/19 18:42 Last Admin: 12/19/18 19:00 Dose: 325 mg Documented by: Hydrocodone Bitart/Acetaminophen (Cameron 5-325 Mg) 1 tab PO Q8H PRN PRN Reason: Pain Stop: 06/20/19 10:52 Allopurinol (Zyloprim) 300 mg PO DAILY [facility] Stop: 06/20/19 11:01 Last Admin: 12/22/18 08:39 Dose: 300 mg Documented by: Amlodipine Besylate (Norvasc) 5 mg PO BID [facility]; Protocol Stop: 06/20/19 21:01 Last Admin: 12/22/18 08:39 Dose: 5 mg Documented by: Atorvastatin Calcium (Lipitor) 40 mg PO HS [facility] Stop: 06/20/19 21:01 Last Admin: 12/21/18 21:34 Dose: 40 mg Documented by: Colchicine (Colcrys) 0.6 mg PO DAILY [facility] Stop: 06/20/19 11:01 Last Admin: 12/22/18 08:39 Dose: 0.6 mg Documented by: Doxazosin Mesylate (Cardura) 4 mg PO DAILY [facility] Stop: 06/20/19 11:01 Last Admin: 12/22/18 08:39 Dose: 4 mg Documented by: Furosemide (Lasix) 40 mg PO DAILY [facility] Stop: 06/23/19 09:01 Last Admin: 12/22/18 08:39 Dose: 40 mg Documented by: Hydralazine HCl (Hydralazine) 10 mg IVP Q6HR PRN PRN Reason: Hypertension Stop: 06/20/19 11:24 Last Admin: 12/21/18 03:17 Dose: 10 mg Documented by: Isosorbide Mononitrate (Imdur) 30 mg PO DAILY [facility] Stop: 06/20/19 14:16 Last Admin: 12/22/18 08:39 Dose: 30 mg Documented by: Labetalol HCl (Labetalol) 10 mg IVP Q1H PRN PRN Reason: Blood Pressure - High Stop: 06/20/19 15:33 Last Admin: 12/19/18 17:52 Dose: 10 mg Documented by: Lisinopril (Zestril) 20 mg PO DAILY [facility] Stop: 06/20/19 09:01 Last Admin: 12/22/18 08:39 Dose: 20 mg Documented by: Lorazepam (Ativan) 1 mg IVP Q1H PRN PRN Reason: Alcohol Withdrawal Stop: 06/19/19 20:33 Lorazepam (Ativan) 2 mg IVP Q4HR PRN PRN Reason: CIWA Score of 10-21 Stop: 06/19/19 20:33 Melatonin (Melatonin) 3 mg PO [facility] Stop: 06/21/19 21:01 Last Admin: 12/21/18 21:34 Dose: 3 mg Documented by: Naloxone HCl (Narcan) 0.4 mg IVP Q2MPRN PRN PRN Reason: SEE COMMENTS Stop: 06/19/19 20:31 Omeprazole (Prilosec) 20 mg PO 0630 [facility]; Protocol Stop: 06/20/19 06:31 Last Admin: 12/22/18 06:02 Dose: 20 mg Documented by: Warfarin Sodium (Coumadin Perpt) 0 each PO DAILY@1800 PRN; Protocol PRN Reason: SEE COMMENTS Stop: 06/20/19 18:01 Laboratory Tests 12/22/18 12/22/18 12/22/18 04:32 04:32 04:32 Hgb 15.5 INR 2.3 Creatinine 1.04 - Imaging and Cardiology Chest Xray: report reviewed Stress Test: report reviewed Echo: report reviewed - EKG Interpretation EKG results cardiology: personally reviewed (ECG with a.fib SVR, HR 57. RBBB noted.), other (Telemetry reviewed with average HR previous 24 hours noted to be 47, a.fib.) Consult Discharge Plan - Plan Instructions: Atrial Fibrillation (DC), Pacemaker (DC), Chronic Hypertension (DC) Additional Instructions: Follow-up with primary care in 2-3 days. Referrals: Eren Najera MD [Primary Care Provider] - (Appointment has been requested.) Prescriptions: Isosorbide MONOnitrate (24 HR) [Imdur] 30 mg PO DAILY #30 tab.er.24h Prescription Printed Furosemide [Lasix] 40 mg PO DAILY #14 tablet Prescription Printed amLODIPine [Norvasc] 5 mg PO BID #60 tablet Prescription Printed <Eren Barrientos - Last Filed: 12/31/18 14:18> Date of Encounter: 12/31/18 - Attending Attestation I have personally performed a face to face evaluation on this patient. I have reviewed and agree with the care plan. History and Exam by me shows: Chronic AF with SVR. Would recommend pacemaker when INR <1.8. Assessment and Plan Discussion w patient/family: The assessment and plan as outlined above was discussed with the patient and/or family members who expressed understanding and agreement. All questions were answered. Thank you for involving us in the care of your patient. Please call with any questions. History of Present Illness History of present illness: Mr. Fox is a 83 year old male All Systems Review: The remainder of the systems were reviewed and are negative Results 12/22/18 04:32 12/22/18 04:32 Cardiac Rehab - Cardiac Rehab Cardiac Rehab: Phase I consult completed. Patient was educated on why Cardiac Rehabilitation is beneficial to his/her health. Participating in a cardiac rehabilitation can improve the following: strengthen your heart, improve ejection fraction, weight reduction, decrease cholesterol levels, lower blood pressure, lower blood sugar, improve stamina, and enhance self-image. If he/she has any questions, they were instructed to call [facility] at [phone].
[2018-12-22] MEDS ORDERED: *HR* Warfarin 5 MG TABLET PO ONE (18:00)
[2018-12-22] MEDS: Melatonin 3 MG TABLET PO SCH (21:10)
[2018-12-23 01:51] LABS: INR 2.4; Prothrombin Time 27.4 Seconds (9.4-12.1)
[2018-12-23] MEDS: amLODIPine 5 MG TABLET PO SCH ×2 (08:29→21:13)
[2018-12-23] MEDS: Isosorbide MONOnitrate (24 HR) 30 MG TAB.ER.24H PO SCH (08:30)
[2018-12-23] MEDS: Lisinopril 20 MG TABLET PO SCH (08:30)
[2018-12-23] MEDS: Furosemide 40 MG TABLET PO SCH (08:30)
[2018-12-23] MEDS: Colchicine 0.6 MG TABLET PO SCH (08:30)
--- NOTE | 2018-12-23 09:32 | Internal Med Progress Note ---
<Marcy Mueller - Last Filed: 12/23/18 09:27> Hospitalist Progress Note - Encounter Date of Encounter: 12/23/18 Time of Encounter: 09:27 - Subjective Interval History: Patientwas seen and examined with family at bedside. He says that he is feeling well today with respiratory status greatly improved from admission. He is able to walk down the halls in the unit, states he still gets a little out of breath after a few minutes of walking but is able to move. Denies orthopnea, fver, chills, chest pain, palpitations, dizziness, lightheadedness. He states he feels a bit congested but that he was able to lay more flat last night to sleep and his cough isn't as bad. Cardiology recommends a pacemaker implant and has been evaluated for this. Procedure expected for tomorrow pending subtherauetic INR.Coumadin being held for this. - Exam Vitals: Temp Pulse Resp BP Pulse Ox 97.8 F 50 16 166/88 95 12/23/18 07:52 12/23/18 07:52 12/23/18 07:52 12/23/18 07:52 12/23/18 07:52 Exam: General: A&O X3, pleasant and conversant, no acute distress Head: atraumatic, normocephalic Eye: PERRL, EOMI, conjuntiva pink, sclera anicteric Neck: Supple, trachea midline; No lymphadenopathy Respiratory: CTAB. No accessory muscle use, wheezes, rales, or rhonchi Cardiovascular: Bradycardia, irregularly irregular, +S1, +S2; no murmurs, rubs, gallops. Radial pulses appropriate and equal 2/4, but distal extremity pulses are faint 1/4. Abdomen: Soft, nontender Extremities: Chronic skin changes in the lower extremities bilaterally consistent with vascular disease, L leg looks darker than previous exams; trace pedal edema in the left lower extremity Neurological: No focal deficits noted Psychiatric: Normal affect, normal mood - Assessment and Plan (1) CHF (congestive heart failure) Current Visit: Yes Status: Acute Assessment and Plan: - Initially presented to the emergency department with dyspnea on exertion - CXR initially demonstrated small right pleural effusion with right basilar airspace disease, atelectasis versus pneumonia - Was started on IV Lasix in the ED and was admitted to the inpatient setting for likely CHF -TTE with LVEF 55%, mildly dilated LV, indeterminate diastolic function, mild AR, severe pulmonary HTN -Stress test negative for ischemia or infarct Plan: - Lasix IV daily to 40 mg PO - Beta blockers not being given due to bradycardia - Strict intake and output, fluid restriction of 1.5 L per day -Continue to withold coumadin for preparation to implant pacemaker (2) Bradycardia Current Visit: Yes Status: Acute Assessment and Plan: - Patient has had a low heart rate in the 40s during hospitalization-- currently 50bpm - Continuous telemetry - He has been asymptomatic; denies dizziness, lightheadedness, palpitations, weakness, or visual disturbances - Cardiology is following; patient scheduled for pacemaker placement tomorrow pending appropriate drop in INR - Will hold patients Coumadin for pacemaker placement (3) Daily consumption of alcohol Current Visit: Yes Status: Acute Assessment and Plan: - Patient has a known history of alcohol abuse - No known history of alcohol withdrawal -CIWA protocol in place (4) Dyspnea Current Visit: Yes Status: Acute (5) Dyspnea on exertion Current Visit: Yes Status: Acute (6) Elevated troponin Current Visit: Yes Status: Acute (7) DVT prophylaxis Current Visit: Yes Status: Acute (8) Afib Current Visit: Yes Status: Chronic Assessment and Plan: Patient has known hx of afib and is managed by product development engineer. On Coumadin at home. (9) CHRISTIANO (obstructive sleep apnea) Current Visit: Yes Status: Chronic Assessment and Plan: Continue BiPAP - Time Spent with Patient Total time spent is greater than 50% in coordination of care (as documented) at patient's floor/unit and/or counseling patient: Internal Medicine: Result - Labs CBC & Chem 7: 12/22/18 04:32 12/22/18 04:32 - ABG Interpretation ABG results: PT/INR, D-dimer PT 27.4 Seconds (9.4-12.1) H 12/23/18 01:08 Consult Discharge Plan - Plan Referrals: Eren Najera MD [Primary Care Provider] - <Calixto Feldman - Last Filed: 12/23/18 18:16> Hospitalist Progress Note - Encounter Date of Encounter: 12/23/18 - Exam Vitals: Temp Pulse Resp BP Pulse Ox 97.5 F L 52 16 130/65 96 12/23/18 16:13 12/23/18 16:13 12/23/18 16:13 12/23/18 16:13 12/23/18 16:13 - Assessment and Plan (1) CHF (congestive heart failure) Current Visit: Yes Status: Acute (2) Bradycardia Current Visit: Yes Status: Acute (3) Thrombocytopenia Current Visit: Yes Status: Acute (4) Afib Current Visit: Yes Status: Chronic (5) Hypertension Current Visit: Yes Status: Acute (6) Daily consumption of alcohol Current Visit: Yes Status: Acute (7) CHRISTIANO (obstructive sleep apnea) Current Visit: Yes Status: Chronic (8) Morbid obesity with BMI of 40.0-44.9, adult Current Visit: Yes Status: Chronic - Time Spent with Patient Total time spent is greater than 50% in coordination of care (as documented) at patient's floor/unit and/or counseling patient: Internal Medicine: Result - Labs CBC & Chem 7: 12/22/18 04:32 12/22/18 04:32 - ABG Interpretation ABG results: PT/INR, D-dimer PT 27.4 Seconds (9.4-12.1) H 12/23/18 01:08 - Attending Attestation I saw evaluated and examined this patient and reviewed objective data including labs and my medical decision-making was reviewed with the Medical Student and Resident Physician. I agree with the documented findings, disposition and treatment plan as described except to any changes set forth below. We independently had [id number] contact with the patient. No acute events. States feeling good, denies CP, SOB, N/V. VS: reviewed, HR tim but stable. BP normal. Physical exam, NAD, AAO x3, pleasant, CVS: bradycardic, no murmurs, ext: trace bipedal edema. Labs; reviewed, INR 2.3. Await therapeutic INR for pacemaker insertion <MuellerReguloMarcy S - Last Filed: 12/23/18 09:27> (1) CHF (congestive heart failure) Qualifiers: Heart failure type: diastolic Heart failure chronicity: acute Qualified Code(s): I50.31 - Acute diastolic (congestive) heart failure (4) Dyspnea Qualifiers: Dyspnea type: shortness of breath Qualified Code(s): R06.02 - Shortness of breath; R06.00 - Dyspnea, unspecified; R06.01 - Orthopnea (8) Afib Qualifiers: Atrial fibrillation type: unspecified Qualified Code(s): I48.91 - Unspecified atrial fibrillation <Calixto Feldman - Last Filed: 12/23/18 18:16> (1) CHF (congestive heart failure) Qualifiers: Heart failure type: diastolic Heart failure chronicity: acute Qualified Code(s): I50.31 - Acute diastolic (congestive) heart failure (4) Afib Qualifiers: Atrial fibrillation type: unspecified Qualified Code(s): I48.91 - Unspecified atrial fibrillation (5) Hypertension Qualifiers: Hypertension type: essential hypertension Qualified Code(s): I10 - Essential (primary) hypertension
--- NOTE | 2018-12-23 10:22 | Electrophysiology ProgressNote ---
Date of Encounter: 12/23/18 Time of Encounter: 09:00 Assessment and Plan (1) Permanent atrial fibrillation Current Visit: Yes Status: Acute Per cardiology: -Has chronic a fib with slow VR. Bradycardic on exam and telemetry. -Has been bradycardic in past and asymptomatic, but now has lightheadedness, decreased exercise tolerance, dyspnea that may be related to chronotropic incompetence. -Patient was diuresed ~6L, however remains symptomatic with shortness of breath, fatigue. -ECG with a.fib SVR, HR 57. RBBB, LAFB noted. -Average HR previous 24 hours noted to be 47, a.fib SVR. -TTE with LVEF preserved. -Stress test negative for ischemia or infarct. -Discussed and reviewed with Dr.John Barrientos, with symptomatic bradycardia, recommend pacemaker. Of note, would recommend INR ideally less than 1.8. Coumadin on hold. Discussed recommendations with patient. -Patient would like to stay inpatient and have pacemaker placed. -INR today 2.4, potential pacer tomorrow pending INR. NPO after midnight. -Will continue to monitor. (2) Bradycardia Current Visit: Yes Status: Acute Per cardiology: -See a.fib as above. Discussion w patient/family: The assessment and plan as outlined above was discussed with the patient and/or family members who expressed understanding and agreement. All questions were answered. Thank you for involving us in the care of your patient. Please call with any questions. Discussed and reviewed with Dr.John Barrientos Subjective Principal diagnosis: Dyspnea Interval history: Patient reports he did not sleep well last night. However, denies other co mplaints. Objective Vital Signs, Last 4 Hours Temp Pulse Resp BP Pulse Ox 12/23/18 07:52 97.8 F 50 16 166/88 95 General: Conversant, No Apparent Distress HEENT: Atraumatic, Normocephaly, Mucus Membranes Moist Neck: No JVD, Normal carotid pulses Cardiac: Normal S1 and S2, No Murmur, Other (Irregularly irregular) Lungs: Normal Breath Sounds, No Wheeze, Rales, Rhonchi Neuro: Alert and responsive, No focal deficits noted Abdomen: Soft, Non-Tender Skin: Other (Bilateral lower extremities discolored. ) Musculoskeletal: No Chest Wall Tenderness Extremities: No Clubbing, No Cyanosis, No Edema, Normal Pulses Results 12/22/18 04:32 12/22/18 04:32 Lab Results Active Medications Acetaminophen (Tylenol) 325 mg PO Q6HR PRN PRN Reason: Pain Stop: 06/20/19 18:42 Last Admin: 12/19/18 19:00 Dose: 325 mg Documented by: Hydrocodone Bitart/Acetaminophen ([place] 5-325 Mg) 1 tab PO Q8H PRN PRN Reason: Pain Stop: 06/20/19 10:52 Allopurinol (Zyloprim) 300 mg PO DAILY [facility] Stop: 06/20/19 11:01 Last Admin: 12/23/18 08:30 Dose: 300 mg Documented by: Amlodipine Besylate (Norvasc) 5 mg PO BID [facility]; Protocol Stop: 06/20/19 21:01 Last Admin: 12/23/18 08:29 Dose: 5 mg Documented by: Atorvastatin Calcium (Lipitor) 40 mg PO HS [facility] Stop: 06/20/19 21:01 Last Admin: 12/22/18 21:10 Dose: 40 mg Documented by: Colchicine (Colcrys) 0.6 mg PO DAILY [facility] Stop: 06/20/19 11:01 Last Admin: 12/23/18 08:30 Dose: 0.6 mg Documented by: Doxazosin Mesylate (Cardura) 4 mg PO DAILY [facility] Stop: 06/20/19 11:01 Last Admin: 12/23/18 08:30 Dose: 4 mg Documented by: Furosemide (Lasix) 40 mg PO DAILY [facility] Stop: 06/23/19 09:01 Last Admin: 12/23/18 08:30 Dose: 40 mg Documented by: Hydralazine HCl (Hydralazine) 10 mg IVP Q6HR PRN PRN Reason: Hypertension Stop: 06/20/19 11:24 Last Admin: 12/21/18 03:17 Dose: 10 mg Documented by: Isosorbide Mononitrate (Imdur) 30 mg PO DAILY [facility] Stop: 06/20/19 14:16 Last Admin: 12/23/18 08:30 Dose: 30 mg Documented by: Labetalol HCl (Labetalol) 10 mg IVP Q1H PRN PRN Reason: Blood Pressure - High Stop: 06/20/19 15:33 Last Admin: 12/19/18 17:52 Dose: 10 mg Documented by: Lisinopril (Zestril) 20 mg PO DAILY [facility] Stop: 06/20/19 09:01 Last Admin: 12/23/18 08:30 Dose: 20 mg Documented by: Lorazepam (Ativan) 1 mg IVP Q1H PRN PRN Reason: Alcohol Withdrawal Stop: 06/19/19 20:33 Lorazepam (Ativan) 2 mg IVP Q4HR PRN PRN Reason: CIWA Score of 10-21 Stop: 06/19/19 20:33 Melatonin (Melatonin) 3 mg PO HS [facility] Stop: 06/21/19 21:01 Last Admin: 12/22/18 21:10 Dose: 3 mg Documented by: Naloxone HCl (Narcan) 0.4 mg IVP Q2MPRN PRN PRN Reason: SEE COMMENTS Stop: 06/19/19 20:31 Omeprazole (Prilosec) 20 mg PO 0630 [facility]; Protocol Stop: 06/20/19 06:31 Last Admin: 12/23/18 05:21 Dose: 20 mg Documented by: Warfarin Sodium (Coumadin Perpt) 0 each PO DAILY@1800 PRN; Protocol PRN Reason: SEE COMMENTS Stop: 06/20/19 18:01 Laboratory Tests 12/23/18 01:08 INR 2.4 - Imaging and Cardiology Chest Xray: report reviewed Stress Test: report reviewed Echo: report reviewed - EKG Interpretation EKG results cardiology: other (Telemetry reviewed with average HR previous 12 hours noted to be 47, a.fib with slow ventricular response. PVCs noted.) Consult Discharge Plan - Plan Referrals: Eren Najera MD [Primary Care Provider] -
[2018-12-23] MEDS: Melatonin 3 MG TABLET PO SCH (21:13)
[2018-12-24 04:16] LABS: Prothrombin Time 22.3 Seconds (9.4-12.1)
[2018-12-24] MEDS: Furosemide 40 MG TABLET PO SCH (09:04)
[2018-12-24] MEDS: amLODIPine 5 MG TABLET PO SCH ×2 (09:04→19:54)
[2018-12-24] MEDS: Colchicine 0.6 MG TABLET PO SCH (09:04)
[2018-12-24] MEDS: Isosorbide MONOnitrate (24 HR) 30 MG TAB.ER.24H PO SCH (09:05)
[2018-12-24] MEDS: Lisinopril 20 MG TABLET PO SCH (09:06)
--- NOTE | 2018-12-24 10:24 | Internal Med Progress Note ---
<Marcy Mueller - Last Filed: 12/24/18 10:21> Hospitalist Progress Note - Encounter Date of Encounter: 12/24/18 Time of Encounter: 09:21 - Subjective Interval History: Mr. Fox was examined at bedside this morning. He was awake and pleasant, but frustrated having to wait for his pacemaker. He denied dyspnea, cough, chest pain, palpitations, dizziness, lightheadedness, N/V/D. Ambulating adequately. - Exam Vitals: Temp Pulse Resp BP Pulse Ox 97.8 F 41 16 158/76 94 12/24/18 07:28 12/24/18 07:28 12/24/18 07:28 12/24/18 07:28 12/24/18 07:28 Exam: General: A&O X3, pleasant and conversant, no acute distress Head: atraumatic, normocephalic Eye: PERRL, EOMI, conjuntiva pink, sclera anicteric Neck: Supple, trachea midline; No lymphadenopathy Respiratory: CTAB. No accessory muscle use, wheezes, rales, or rhonchi Cardiovascular: Bradycardia, irregularly irregular, +S1, +S2; no murmurs, rubs, gallops. Radial pulses appropriate and equal 2/4, but distal extremity pulses are faint 1/4. Abdomen: Soft, nontender Extremities: Chronic skin changes in the lower extremities bilaterally consistent with vascular disease, L leg looks darker than previous exams; trace pedal edema in the left lower extremity Neurological: No focal deficits noted Psychiatric: Normal affect, normal mood - Assessment and Plan (1) CHF (congestive heart failure) Current Visit: Yes Status: Acute Assessment and Plan: - Initially presented to the emergency department with dyspnea on exertion - CXR initially demonstrated small right pleural effusion with right basilar airspace disease, atelectasis versus pneumonia - Was started on IV Lasix in the ED and was admitted to the inpatient setting for likely CHF -TTE with LVEF 55%, mildly dilated LV, indeterminate diastolic function, mild AR, severe pulmonary HTN -Stress test negative for ischemia or infarct Plan: - Lasix IV daily to 40 mg PO - Beta blockers not being given due to bradycardia - Strict intake and output, fluid restriction of 1.5 L per day -Continue to withold coumadin for preparation to implant pacemaker (2) Bradycardia Current Visit: Yes Status: Acute Assessment and Plan: - Patient has had a low heart rate in the 40s during hospitalization-- currently 50bpm - Continuous telemetry - He has been asymptomatic; denies dizziness, lightheadedness, palpitations, weakness, or visual disturbances - Cardiology is following; patient scheduled for pacemaker placement tomorrow pending appropriate drop in INR - Will hold patients Coumadin for pacemaker placement (3) Daily consumption of alcohol Current Visit: Yes Status: Acute Assessment and Plan: - Patient has a known history of alcohol abuse - No known history of alcohol withdrawal -CIWA protocol in place (4) Dyspnea on exertion Current Visit: Yes Status: Acute (5) Elevated troponin Current Visit: Yes Status: Acute (6) DVT prophylaxis Current Visit: Yes Status: Acute (7) Afib Current Visit: Yes Status: Chronic (8) CHRISTIANO (obstructive sleep apnea) Current Visit: Yes Status: Chronic - Time Spent with Patient Total time spent is greater than 50% in coordination of care (as documented) at patient's floor/unit and/or counseling patient: Internal Medicine: Result - Labs CBC & Chem 7: 12/22/18 04:32 12/22/18 04:32 - ABG Interpretation ABG results: PT/INR, D-dimer PT 22.3 Seconds (9.4-12.1) H 12/24/18 03:38 Consult Discharge Plan - Plan Referrals: Eren Najera MD [Primary Care Provider] - (Appointment has been requested.) <Calixto Feldman - Last Filed: 12/24/18 21:02> Hospitalist Progress Note - Encounter Date of Encounter: 12/24/18 - Exam Vitals: Temp Pulse Resp BP Pulse Ox 97.4 F L 39 16 112/60 94 12/24/18 19:31 12/24/18 19:31 12/24/18 19:31 12/24/18 19:31 12/24/18 19:31 - Assessment and Plan (1) CHF (congestive heart failure) Current Visit: Yes Status: Acute (2) Bradycardia Current Visit: Yes Status: Acute (3) Thrombocytopenia Current Visit: Yes Status: Acute (4) Afib Current Visit: Yes Status: Chronic (5) Hypertension Current Visit: Yes Status: Acute (6) Daily consumption of alcohol Current Visit: Yes Status: Acute (7) CHRISTIANO (obstructive sleep apnea) Current Visit: Yes Status: Chronic (8) Morbid obesity with BMI of 40.0-44.9, adult Current Visit: Yes Status: Chronic - Time Spent with Patient Total time spent is greater than 50% in coordination of care (as documented) at patient's floor/unit and/or counseling patient: Internal Medicine: Result - Labs CBC & Chem 7: 12/22/18 04:32 12/22/18 04:32 - ABG Interpretation ABG results: PT/INR, D-dimer PT 22.3 Seconds (9.4-12.1) H 12/24/18 03:38 - Attending Attestation I saw evaluated and examined this patient and reviewed objective data including labs and my medical decision-making was reviewed with the Medical Student and Resident Physician. I agree with the documented findings, disposition and treatment plan as described except to any changes set forth below. We independently had [id number] contact with the patient. <Marcy Mueller - Last Filed: 12/24/18 10:21> (1) CHF (congestive heart failure) Qualifiers: Heart failure type: diastolic Heart failure chronicity: acute Qualified Code(s): I50.31 - Acute diastolic (congestive) heart failure (7) Afib Qualifiers: Atrial fibrillation type: unspecified Qualified Code(s): I48.91 - Unspecified atrial fibrillation <Calixto Feldman - Last Filed: 12/24/18 21:02> (1) CHF (congestive heart failure) Qualifiers: Heart failure type: diastolic Heart failure chronicity: acute Qualified Code(s): I50.31 - Acute diastolic (congestive) heart failure (4) Afib Qualifiers: Atrial fibrillation type: unspecified Qualified Code(s): I48.91 - Unspecified atrial fibrillation (5) Hypertension Qualifiers: Hypertension type: essential hypertension Qualified Code(s): I10 - Essential (primary) hypertension
--- NOTE | 2018-12-24 10:42 | Electrophysiology ProgressNote ---
Date of Encounter: 12/24/18 Time of Encounter: 09:30 Assessment and Plan (1) Permanent atrial fibrillation Current Visit: Yes Status: Acute Per cardiology: -Has chronic a fib with slow VR. Bradycardic on exam and telemetry. -Has been bradycardic in past and asymptomatic, but now has lightheadedness, decreased exercise tolerance, dyspnea that may be related to chronotropic incompetence. -Patient was diuresed ~6L, however remains symptomatic with shortness of breath, fatigue. -ECG with a.fib SVR, HR 57. RBBB, LAFB noted. -Average HR previous 24 hours noted to be 47, a.fib SVR. -TTE with LVEF preserved. -Stress test negative for ischemia or infarct. -Discussed and reviewed with Dr.John Barrientos, with symptomatic bradycardia, recommend pacemaker. Of note, would recommend INR ideally less than 1.8. Coumadin on hold. Discussed recommendations with patient. -Patient would like to stay inpatient and have pacemaker placed. -INR today 2, potential pacer tomorrow pending INR. NPO after midnight. Discussed with patient and family. -Will continue to monitor. (2) Bradycardia Current Visit: Yes Status: Acute Per cardiology: -See a.fib as above. Discussion w patient/family: The assessment and plan as outlined above was discussed with the patient and/or family members who expressed understanding and agreement. All questions were answered. Thank you for involving us in the care of your patient. Please call with any questions. Discussed and reviewed with Dr.John Barrientos Subjective Principal diagnosis: Dyspnea Interval history: Patient reprots he is anxious to have pacemaker placed. Objective Vital Signs, Last 4 Hours Temp Pulse Resp BP Pulse Ox 12/24/18 07:28 97.8 F 41 16 158/76 94 General: Conversant, No Apparent Distress HEENT: Atraumatic, Normocephaly, Mucus Membranes Moist Neck: No JVD, Normal carotid pulses Cardiac: Normal S1 and S2, No Murmur, Other (Irregularly irregular, bradycardic) Lungs: Normal Breath Sounds, No Wheeze, Rales, Rhonchi Neuro: Alert and responsive, No focal deficits noted Abdomen: Soft, Non-Tender Skin: No rashes noted on visualized skin, Other (Bilateral lower extremitied discolored. ) Musculoskeletal: No Chest Wall Tenderness Extremities: No Clubbing, No Cyanosis, No Edema, Normal Pulses Results 12/22/18 04:32 12/22/18 04:32 Lab Results Active Medications Acetaminophen (Tylenol) 325 mg PO Q6HR PRN PRN Reason: Pain Stop: 06/20/19 18:42 Last Admin: 12/19/18 19:00 Dose: 325 mg Documented by: Hydrocodone Bitart/Acetaminophen ([place] 5-325 Mg) 1 tab PO Q8H PRN PRN Reason: Pain Stop: 06/20/19 10:52 Allopurinol (Zyloprim) 300 mg PO DAILY [facility] Stop: 06/20/19 11:01 Last Admin: 12/24/18 09:05 Dose: 300 mg Documented by: Amlodipine Besylate (Norvasc) 5 mg PO BID [facility]; Protocol Stop: 06/20/19 21:01 Last Admin: 12/24/18 09:04 Dose: 5 mg Documented by: Atorvastatin Calcium (Lipitor) 40 mg PO HS [facility] Stop: 06/20/19 21:01 Last Admin: 12/23/18 21:13 Dose: 40 mg Documented by: Colchicine (Colcrys) 0.6 mg PO DAILY [facility] Stop: 06/20/19 11:01 Last Admin: 12/24/18 09:04 Dose: 0.6 mg Documented by: Doxazosin Mesylate (Cardura) 4 mg PO DAILY [facility] Stop: 06/20/19 11:01 Last Admin: 12/24/18 09:05 Dose: 4 mg Documented by: Furosemide (Lasix) 40 mg PO DAILY [facility] Stop: 06/23/19 09:01 Last Admin: 12/24/18 09:04 Dose: 40 mg Documented by: Hydralazine HCl (Hydralazine) 10 mg IVP Q6HR PRN PRN Reason: Hypertension Stop: 06/20/19 11:24 Last Admin: 12/21/18 03:17 Dose: 10 mg Documented by: Isosorbide Mononitrate (Imdur) 30 mg PO DAILY [facility] Stop: 06/20/19 14:16 Last Admin: 12/24/18 09:05 Dose: 30 mg Documented by: Lisinopril (Zestril) 20 mg PO DAILY [facility] Stop: 06/20/19 09:01 Last Admin: 12/24/18 09:06 Dose: 20 mg Documented by: Lorazepam (Ativan) 1 mg IVP Q1H PRN PRN Reason: Alcohol Withdrawal Stop: 06/19/19 20:33 Lorazepam (Ativan) 2 mg IVP Q4HR PRN PRN Reason: CIWA Score of 10-21 Stop: 06/19/19 20:33 Melatonin (Melatonin) 3 mg PO HS TABBY Stop: 06/21/19 21:01 Last Admin: 12/23/18 21:13 Dose: 3 mg Documented by: Naloxone HCl (Narcan) 0.4 mg IVP Q2MPRN PRN PRN Reason: SEE COMMENTS Stop: 06/19/19 20:31 Omeprazole (Prilosec) 20 mg PO 0630 TABBY; Protocol Stop: 06/20/19 06:31 Last Admin: 12/24/18 04:54 Dose: Not Given Documented by: Warfarin Sodium (Coumadin Perpt) 0 each PO DAILY@1800 PRN; Protocol PRN Reason: SEE COMMENTS Stop: 06/20/19 18:01 Laboratory Tests 12/24/18 03:38 INR 2.0 - Imaging and Cardiology Chest Xray: report reviewed Stress Test: report reviewed Echo: report reviewed - EKG Interpretation EKG results cardiology: other (Telemetry reviewed with average HR previous 12 hours noted to be 47, a.fib with SVR. PVCs noted.) Consult Discharge Plan - Plan Referrals: Eren Najera MD [Primary Care Provider] - (Appointment has been requested.) Cardiac Rehab - Cardiac Rehab Cardiac Rehab: Phase I consult completed. Patient was educated on why Cardiac Rehabilitation is beneficial to his/her health. Participating in a cardiac rehabilitation can improve the following: strengthen your heart, improve ejection fraction, weight reduction, decrease cholesterol levels, lower blood pressure, lower blood sugar, improve stamina, and enhance self-image. If he/she has any questions, they were instructed to call [facility] at [phone].
[2018-12-24] MEDS: Melatonin 3 MG TABLET PO SCH (19:54)
[2018-12-25 05:22] LABS: INR 1.5; Prothrombin Time 16.6 Seconds (9.4-12.1)
[2018-12-25] MEDS ORDERED: Clindamycin 900 MG/50 ML 900 MG/50 ML IV.SOLN IVPB ONE (09:07)
--- NOTE | 2018-12-25 09:13 | Event Note ---
Date of Encounter: 12/25/18 Time of Encounter: 09:10 - Cardiology Event Note INR today 1.5, plan for pacemaker today. Risks versus benefits of pacemaker placement discussed with patient and family, who state understanding and agreeable to proceed. Of note, code status listed as DNR-CCA/DNI, patient agreeable to resend code status for procedure and for 24 hours after. Further recs pending pacemaker.
[2018-12-25] MEDS: Colchicine 0.6 MG TABLET PO SCH (10:01)
[2018-12-25] MEDS: Isosorbide MONOnitrate (24 HR) 30 MG TAB.ER.24H PO SCH (10:02)
[2018-12-25] MEDS: amLODIPine 5 MG TABLET PO SCH ×2 (10:04→20:27)
[2018-12-25] MEDS: Furosemide 40 MG TABLET PO SCH (10:04)
[2018-12-25] MEDS: Lisinopril 20 MG TABLET PO SCH (10:04)
--- NOTE | 2018-12-25 12:31 | Pre-Sedation Evaluation ---
Pre-sedation evaluation - Pre-sedation checklist Date of procedure: 12/24/18 Procedure: double Recent Vitals: Last Vital Signs Temp 97.5 F L 12/25/18 10:50 Pulse 36 12/25/18 10:50 Resp 16 12/25/18 10:50 BP 129/80 12/25/18 10:50 Pulse Ox 93 12/25/18 10:50 H&P (including ROS) documented in medical record: No Previous reaction to sedatives/anesthetics: No Dietary Status: NPO after Midnight Airway Assessment: Patient can open mouth completely, TMJ function normal, Micrognathia (under-bite, receding chin) absent Dentition: No loose teeth or bridges Possible difficult airway: No ASA Classification *see protocol: CLASS II-Mild systemic disease Plan of Care: Pt appropriate candidate for procedure/moderate/conscious sedation, Risks/benefits of procedure/sedation discussed w/ patient/family
[2018-12-25] MEDS ORDERED: 0.9 % Sodium Chloride 500 ML ONE (12:50)
[2018-12-25] MEDS ORDERED: Clindamycin 600 MG/50 ML 1,200 MG/100 ML IV.SOLN IVPB ONE (12:50)
[2018-12-25] MEDS ORDERED: 0.9 % Sodium Chloride 1,000 ML ONE (12:50)
[2018-12-25] MEDS ORDERED: *HR* Midazolam HCl 2 MG/2 ML VIAL ONE (13:03)
[2018-12-25] MEDS ORDERED: *HR* FentaNYL (PF) 100 MCG/2 ML VIAL ONE (13:04)
--- NOTE | 2018-12-25 15:29 | Internal Med Progress Note ---
<Kami Kearns - Last Filed: 12/25/18 16:17> Hospitalist Progress Note - Encounter Date of Encounter: 12/25/18 Time of Encounter: 09:32 - Subjective Interval History: Patient today reported feeling well. He was sitting on the side of the bed during encounter and was glad that his INR was now 1.5, which was under the level of 1.8 which EP set as readiness parameter for pacemaker placement. Patient is scheduled for placement of dual-chamber pacemaker today for asymptomatic bradycardia. - Exam Vitals: Temp Pulse Resp BP Pulse Ox 97.5 F L 36 16 129/80 93 12/25/18 10:50 12/25/18 10:50 12/25/18 10:50 12/25/18 10:50 12/25/18 10:50 Exam: GENERAL: awake, conversant, in no acute distress. EYES: Anicteric, clear sclerae. Bowels equal and reactive to light bilaterally. HENT: Atraumatic, normocephalic. Moist mucosa NECK: Supple. Carotid pulses normal. CV: Bradycardic, regular rhythm. Normal S1 and S2. No murmurs, clicks, or gall ops. RESPIRATORY/CHEST: Clear to auscultation bilaterally. No wheezes, rhonchi, or rales. ABDOMEN: Soft, nontender, normal bowel sounds. EXTREMITIES: Appearance of lower extremities consistent with venous stasis. Dorsalis pedis pulses 1+/4. SKIN: Warm, dry. - Assessment and Plan (1) CHF (congestive heart failure) Current Visit: Yes Status: Acute Assessment and Plan: Presented initially for exertional dyspnea. CXR showed small right pleural effusion with right basilar airspace disease, atelectasis vs pneumonia. TTE showed EF 55%, mildly dilated LV, indeterminate diastolic function, mild AR, severe pulmonary HTN Stress test was negative for ischemia or infarction He began IV Lasix in ED and was transitioned to PO Lasix 40 mg. -continue PO Lasix 40 mg. -continue holding beta-blockers due to bradycardia -continue strict I's and O's and fluid restriction to 1.5 L/day -continue to withhold Coumadin until pacemaker has been implanted. (2) Bradycardia Current Visit: Yes Status: Acute Assessment and Plan: Pulse rate today was 42. Electrophysiology recommended dual-chamber pacemaker with readiness parameter of INR under 1.8. Coumadin has been held to achieve this goal. -Today, INR was 1.5. -Electrophysiology is performing pacemaker placement today. -Continue on telemetry -Cardiology recommends discharge tomorrow if there are no complications, after he has had a CXR and device check. (3) Daily consumption of alcohol Current Visit: Yes Status: Acute Assessment and Plan: Patient has known history of daily alcohol consumption, with approximately 3 U alcohol/day, daily, to total of 21 U/wk. -CIWA protocol is in place -No evidence of alcohol withdrawal. (4) Dyspnea on exertion Current Visit: Yes Status: Acute Assessment and Plan: Likely secondary to CHF exacerbation. See plan for CHF. (5) Elevated troponin Current Visit: Yes Status: Acute Assessment and Plan: Troponins on 12/18-12/19 were 0.03 > 0.04 > 0.04 (6) Afib Current Visit: Yes Status: Chronic Assessment and Plan: Patient has known history of atrial fibrillation which is treated with Coumadin. -Coumadin is currently held to achieve INR under 1.8 for pacemaker placement. (7) CHRISTIANO (obstructive sleep apnea) Current Visit: Yes Status: Chronic Assessment and Plan: Continue BiPAP. DVT Prophylaxis: Coumadin currently held for pacemaker placement. - Time Spent with Patient Total time spent is greater than 50% in coordination of care (as documented) at patient's floor/unit and/or counseling patient: Internal Medicine: Result - Labs CBC & Chem 7: 12/22/18 04:32 12/22/18 04:32 - ABG Interpretation ABG results: PT/INR, D-dimer PT 16.6 Seconds (9.4-12.1) H 12/25/18 03:37 - Impressions Impressions Chest X-Ray 12/25/18 14:56 IMPRESSION: No acute process. Stable cardiomegaly Transvenous pacer in place, no pneumothorax D/ / Alcon Wright MD / Alcon Wright MD Interpreting Provider: Alcon Wright MD Consult Discharge Plan - Plan Referrals: Eren Najera MD [Primary Care Provider] - (Appointment has been requested.) <Calixto Feldman - Last Filed: 12/25/18 18:12> Hospitalist Progress Note - Encounter Date of Encounter: 12/25/18 - Exam Vitals: Temp Pulse Resp BP Pulse Ox 98.0 F 60 16 129/70 93 12/25/18 17:00 12/25/18 17:00 12/25/18 17:00 12/25/18 17:00 12/25/18 17:00 - Assessment and Plan (1) CHF (congestive heart failure) Current Visit: Yes Status: Acute (2) Bradycardia Current Visit: Yes Status: Acute (3) Thrombocytopenia Current Visit: Yes Status: Acute (4) Afib Current Visit: Yes Status: Chronic (5) Hypertension Current Visit: Yes Status: Acute (6) Daily consumption of alcohol Current Visit: Yes Status: Acute (7) CHRISTIANO (obstructive sleep apnea) Current Visit: Yes Status: Chronic (8) Morbid obesity with BMI of 40.0-44.9, adult Current Visit: Yes Status: Chronic - Time Spent with Patient Total time spent is greater than 50% in coordination of care (as documented) at patient's floor/unit and/or counseling patient: Internal Medicine: Result - Labs CBC & Chem 7: 12/22/18 04:32 12/22/18 04:32 - ABG Interpretation ABG results: PT/INR, D-dimer PT 16.6 Seconds (9.4-12.1) H 12/25/18 03:37 - Impressions Impressions Chest X-Ray 12/25/18 14:56 IMPRESSION: No acute process. Stable cardiomegaly Transvenous pacer in place, no pneumothorax D/ / Alcon Wright MD / Alcon Wright MD Interpreting Provider: Alcon Wright MD - Attending Attestation I saw evaluated and examined this patient and reviewed objective data including labs and my medical decision-making was reviewed with the Resident Physician. I agree with the documented findings, disposition and treatment plan as described except to any changes set forth below. We independently had [id number] contact with the patient. <Kami Kearns - Last Filed: 12/25/18 16:17> (1) CHF (congestive heart failure) Qualifiers: Heart failure type: diastolic Heart failure chronicity: acute Qualified Code(s): I50.31 - Acute diastolic (congestive) heart failure (6) Afib Qualifiers: Atrial fibrillation type: unspecified Qualified Code(s): I48.91 - Unspecified atrial fibrillation <Calixto Feldman - Last Filed: 12/25/18 18:12> (1) CHF (congestive heart failure) Qualifiers: Heart failure type: diastolic Heart failure chronicity: acute Qualified Code(s): I50.31 - Acute diastolic (congestive) heart failure (4) Afib Qualifiers: Atrial fibrillation type: unspecified Qualified Code(s): I48.91 - Unspecified atrial fibrillation (5) Hypertension Qualifiers: Hypertension type: essential hypertension Qualified Code(s): I10 - Essential (primary) hypertension
[2018-12-25] MEDS ORDERED: Clindamycin 900 MG/50 ML 900 MG/50 ML IV.SOLN IVPB SCH (18:00)
[2018-12-25] MEDS: Melatonin 3 MG TABLET PO SCH (20:26)
[2018-12-26 08:08] LABS: INR 1.3; Prothrombin Time 15.3 Seconds (9.4-12.1)
[2018-12-26] MEDS: Lisinopril 20 MG TABLET PO SCH (09:27)
[2018-12-26] MEDS: Furosemide 40 MG TABLET PO SCH (09:27)
[2018-12-26] MEDS: Isosorbide MONOnitrate (24 HR) 30 MG TAB.ER.24H PO SCH (09:27)
[2018-12-26] MEDS: amLODIPine 5 MG TABLET PO SCH (09:28)
--- NOTE | 2018-12-26 11:28 | Cardiology Progress Note ---
Date of Encounter: 12/26/18 Time of Encounter: 11:20 Assessment and Plan (1) Permanent atrial fibrillation Current Visit: Yes Status: Acute Per cardiology: -Has chronic a fib with slow VR. -Has been bradycardic in past and asymptomatic, but now has lightheadedness, decreased exercise tolerance, dyspnea that may be related to chronotropic incompetence. -PPM recommended. -TTE with LVEF preserved. -Stress test negative for ischemia or infarct. S/p PPM 12/25/18. Restart coumadin in one week per Dr. Barrientos recommendation. Discussed with patient and he voiced understanding . (2) CHF (congestive heart failure) Current Visit: Yes Status: Acute Per cardiology: -Acute diastolic CHF reports NYHA class II symptoms. -Chest x-ray with pleural effusion. BNP 608. -TTE as above with LVEF preserved. symptoms improved with IV diuresis. Now on oral lasix. CHF education reviewed. Qualifiers: Heart failure type: diastolic Heart failure chronicity: acute Qualified Code(s): I50.31 - Acute diastolic (congestive) heart failure (3) Bradycardia Current Visit: Yes Status: Acute S/p PPM. CXR negative for pnuemo. Device check pending, If normal can be discharged from cardiology standpoint. ACTIVITY: Moderate activity for the next 7 days. No lifting more than 5 pounds (gallon of milk) for 4-6 weeks. Avoid lifting your arm on the same side as the device for 4 weeks. BATHING /SHOWERING: Do not remove the large bandage over the site for 2 days. Do not allow the device to get wet for 7-10 days. You may bathe/shower, but do not use soap and water on the site. When bathing, keep the site dry by covering with Saran wrap or a towel. WOUND CARE: The white steri-strips will start to peel away and come off after 14 days, or your doctor will remove them after [address] into or on top of the incision. Do not use cotton swabs. Do not use any antibiotic ointment or Vitamin E on the site. REMINDERS: You may use electrical devices, such as, microwaves, hair dryers, electric razors, electric blankets, etc. as long as they are in good condition and kept 6-8 inches away from the device. It is recommended to use cell phones on the opposite side of your device. Notify security personnel at the airport that you have a device before you go through airport security screening. When at places with security monitors, such as a grocery store, do not linger near these monitors. It is fine to walk past them in a normal manner. Refer to your owners manual for more specific directions. CARRY YOUR PACEMAKER/ICD CARD WITH YOU AT ALL TIMES Return to work as instructed per physician Resume driving as instructed per physician Keep all scheduled follow up appointments Resume medications as instructed Contact [facility] ( ) if: You develop excessive bleeding from insertion or wound site not controlled by applying pressure You develop a fever greater than 101 degrees Fahrenheit Your incision becomes reddened at or around the site Your incision develops yellowish or greenish drainage or development of white pimple-like bumps You experience excessive pain You develop swelling in your ankles You experience muscle switching You develop excessive hiccupping If you experience chest pain, shortness of breath, dizziness, or extreme tiredness, stop the activity and rest. Please notify [facility] office if you experience any of these symptoms and they are not relieved by rest please call 911! Discussion w patient/family: The assessment and plan as outlined above was discussed with the patient and/or family members who expressed understanding and agreement. All questions were answered. Thank you for involving us in the care of your patient. Please call with any questions. Subjective Principal diagnosis: Dyspnea Results 12/22/18 04:32 12/22/18 04:32 Lab Results 12/26/18 07:07 INR 1.3 Consult Discharge Plan - Plan Referrals: Eren Najera MD [Primary Care Provider] - (Appointment has been requested.) Cardiac Rehab - Cardiac Rehab Cardiac Rehab: Phase I consult completed. Patient was educated on why Cardiac Rehabilitation is beneficial to his/her health. Participating in a cardiac rehabilitation can improve the following: strengthen your heart, improve ejection fraction, weight reduction, decrease cholesterol levels, lower blood pressure, lower blood sugar, improve stamina, and enhance self-image. If he/she has any questions, they were instructed to call [facility] at [phone].
[2018-12-26 11:46] VITALS: BP 104/58
[2018-12-26] MEDS: Colchicine 0.6 MG TABLET PO SCH (12:34)
--- NOTE | 2018-12-26 13:53 | Discharge Summary ---
- NOTES TO OUTPATIENT PROVIDER Notes to Outpatient Provider: Monitor fluid status and adjust Lasix as needed. Repeat BMP in one week. Sebastian, Estephaniadur started per Cardiology. Date of Encounter: 12/26/18 Time of Encounter: 13:42 - Discharge Diagnosis (1) CHF (congestive heart failure) Priority: Primary Status: Acute Qualifiers: Heart failure type: diastolic Heart failure chronicity: acute Qualified Code(s): I50.31 - Acute diastolic (congestive) heart failure (2) Bradycardia Priority: Secondary Status: Acute (3) Thrombocytopenia Priority: Secondary Status: Acute (4) Afib Priority: Secondary Status: Chronic Qualifiers: Atrial fibrillation type: unspecified Qualified Code(s): I48.91 - Unspecified atrial fibrillation (5) Hypertension Priority: Secondary Status: Acute Qualifiers: Hypertension type: essential hypertension Qualified Code(s): I10 - Essential (primary) hypertension (6) Daily consumption of alcohol Priority: Secondary Status: Acute (7) CHRISTIANO (obstructive sleep apnea) Priority: Secondary Status: Chronic (8) Morbid obesity with BMI of 40.0-44.9, adult Priority: Secondary Status: Chronic Hospital course: it was noted that he was bradycardiac and short of breath so he was recommended to go to ED. The patient reported that for about a month now he has had dyspnea on exertion that has been slowly worsening with today having the worst dyspnea. It is improved with rest. He states he has been bradycardiac with heart rate in the 40s for a very long time but he is asymptomatic and has never had a syncopal episode, chest pain, palpitations, weakness. He has only been lightheaded once with it in the past. He has noted some nausea recently. He does not take any heart rate limiting medications. He has occasional left lower extremity edema from an Achilles tendon surgery. He was admitted for CHF exacerbation and bradycardia. Cardiology was consulted. He was diuresed with IV Lasix and had a fluid restriction diet. He consumes alcohol daily and so he was monitored on CIWA protocol and did not exhibit any signs of alcohol withdrawal. Echocardiogram showed preserved EF. He had a stress test that was done that was negative for ischemia or infarct. He was able to transition down to oral Lasix as breathing improved and he was net negative 6 L on admission. EP was consulted and patient was scheduled for pacemaker. Due to INR levels, the pacer was delayed and inserted on 12/25/18. Tolerated well, and pacemaker was evaluated and clear for discharge. Discussed against alcohol use as this can worsen heart failure and BP. He was instructed to restart coumadin in one week per Cardiology recommendations, and patient acknowledge this and plan to restart coumadin in one week. - Time Spent with Patient Total time spent providing and/or coordinating discharge services: - Discharge Medications Prescriptions: New Isosorbide MONOnitrate (24 HR) [Imdur] 30 mg PO DAILY #30 tab.er.24h Furosemide [Lasix] 40 mg PO DAILY #14 tablet Naloxone [Narcan] 0.4 mg IVP Q2MPRN PRN inj PRN Reason: See Comments amLODIPine [Norvasc] 5 mg PO BID #60 tablet Continued Benazepril HCl 20 mg PO DAILY Doxazosin [Cardura] 4 mg PO DAILY HYDROcodone/Acet 5/325 mg [[place] 5-325 mg] 1 tab PO Q8H PRN PRN Reason: Pain Multivitamin [One Daily Multivitamin] 1 tab PO DAILY [place]-3/Dha/Epa/Fish Oil [Fish Oil 1,000 mg Softgel] 1 cap PO DAILY Simvastatin [Zocor] 40 mg PO HS Vitamin E Acid Succinate [Vitamin E] 400 units PO DAILY Zinc [Zinc Chelated] 50 mg PO DAILY Allopurinol [Zyloprim 300 MG] 300 mg PO DAILY Colchicine [Colcrys] 0.6 mg PO DAILY Omeprazole 20 mg PO DAILY Warfarin Sodium 5 mg PO QPM #0 Discontinued Potassium 99 mg PO DAILY Furosemide [Lasix] 20 mg PO DAILY Home Medications: Benazepril HCl 20 mg PO DAILY 01/13/18 [History] Doxazosin [Cardura] 4 mg PO DAILY 01/13/18 [History] HYDROcodone/Acet 5/325 mg [[place] 5-325 mg] 1 tab PO Q8H PRN 01/13/18 [History] Multivitamin [One Daily Multivitamin] 1 tab PO DAILY 01/13/18 [History] [place]-3/Dha/Epa/Fish Oil [Fish Oil 1,000 mg Softgel] 1 cap PO DAILY 01/13/18 [History] Simvastatin [Zocor] 40 mg PO HS 01/13/18 [History] Vitamin E Acid Succinate [Vitamin E] 400 units PO DAILY 01/13/18 [History] Zinc [Zinc Chelated] 50 mg PO DAILY 01/13/18 [History] Allopurinol [Zyloprim 300 MG] 300 mg PO DAILY 12/18/18 [History] Colchicine [Colcrys] 0.6 mg PO DAILY 12/18/18 [History] Omeprazole 20 mg PO DAILY 12/18/18 [History] Furosemide [Lasix] 40 mg PO DAILY #14 tablet 12/26/18 [Rx] Isosorbide MONOnitrate (24 HR) [Imdur] 30 mg PO DAILY #30 tab.er.24h 12/26/18 [Rx] Naloxone [Narcan] 0.4 mg IVP Q2MPRN PRN inj 12/26/18 [Rx] Warfarin Sodium 5 mg PO QPM #0 12/26/18 [Rx] amLODIPine [Norvasc] 5 mg PO BID #60 tablet 12/26/18 [Rx] Allergies/Adverse Reactions: Allergy/AdvReac Type Severity Reaction Status Date / Time Penicillins Allergy Swelling Verified 03/29/18 10:44 of Lip/Tongue/Throat Date of admission: 12/20/18 11:35 Primary care physician: Eren Najera MD Consults: 12/18/18 20:32 Consult to Cardiology [CONS] Routine Comment: Consulting Provider: Card[facility] [place] Reason for Consult: New probable HF. Bradycardia HR 30-40s. known A.fib. pt of Dr. Montelongo. Call Completed: No 12/21/18 09:30 Consult to Nurse Navigator [CONS] Routine Comment: CHF 12/21/18 13:11 Consult to Electrophysiology (EP) [CONS] Routine Consulting Provider: Electrophysiology [place] Reason for Consult: a.fib bradycardia. Evaluation for pacemaker Call Completed: Yes Discharging clinician: Calixto Feldman - Constitutional Vitals: Temp Pulse Resp BP Pulse Ox 97.5 F L 60 16 104/58 93 12/26/18 11:45 12/26/18 11:45 12/26/18 11:45 12/26/18 11:45 12/26/18 11:45 Exam: GENERAL: awake, conversant, in no acute distress. EYES: Anicteric, clear sclerae. Bowels equal and reactive to light bilaterally. HENT: Atraumatic, normocephalic. Moist mucosa NECK: Supple. Carotid pulses normal. CV: Bradycardic, regular rhythm. Normal S1 and S2. No murmurs, clicks, or gallops. RESPIRATORY/CHEST: Clear to auscultation bilaterally. No wheezes, rhonchi, or rales. ABDOMEN: Soft, nontender, normal bowel sounds. EXTREMITIES: Appearance of lower extremities consistent with venous stasis. Dorsalis pedis pulses 1+/4. SKIN: Warm, dry. - Patient Status Disposition: Home, Self-Care Condition: Fair Functional capacity at discharge: independent ambulation Overall status at discharge: patient is back to baseline - Discharge Instructions Follow Up With: Eren Najera MD [Primary Care Provider] - (Appointment has been requested.) Additional Instructions: Follow-up with primary care in 2-3 days. - Diet and Activity Activity: increase activity as tolerated Diet: low fat, low cholesterol, low salt diet
== END 2018-12-26 15:54 | disposition home or self-care (01) | DRG 291 ==
LOC: 3BNU 17:46 → EMEROOARM 17:46 → 3BNU 20:34 → SUATTDRO 12-20 11:35
PROVIDERS: ADMIT Family Medicine; ATTEND Student in an Organized Health Care Education/Training Program